=== PATIENT | female | born 1935 | race Caucasian/White ===

== ENCOUNTER 2018-12-16 17:07 | Inpatient (IN) | payer MEDICARE, OTHER ==
[~2018-12-16] VITALS: Ht 154.9 cm; Wt 93.5 kg
[2018-12-16] MEDS ORDERED: SOD CHLORIDE 0.9% 1,000 ML IV STA (17:13)
[2018-12-16] MEDS ORDERED: SOD CHLORIDE 0.9% 0 ML IV ONE (17:56)
--- NOTE | 2018-12-16 18:05 | ERD ---
ER Documentation Chief Complaint Chief Complaint lethargy and weakness x 2 days HPI 83-year-old female with a history of hypertension and diabetes presenting with generalized weakness for the past few days. She states that she gets very short of breath with only minimal exertion. She denies any associated chest pain, fever, chills, cough, recent illness. She was recently admitted to [facility] for 1 week. ROS All systems reviewed and are negative except as per history of present illness. Medications Home Meds Reported Medications Fenofibrate, Micronized* (Fenofibrate*) 160 Mg Tablet, 160 MG PO DAILY, TAB 12/16/18 Pioglitazone Hcl* (Actos*) 45 Mg Tablet, 45 MG PO DAILY, #30 TAB 12/16/18 Atorvastatin* (Atorvastatin*) 40 Mg Tablet, 40 MG PO QHS, #30 TAB 12/16/18 Glimepiride* (Glimepiride*) 2 Mg Tablet, 2 MG PO WITH BREAKFAST DINNE, TAB 12/16/18 Aspirin (Low Dose Aspirin) 81 Mg Tablet.dr, 81 MG PO DAILY, #30 TAB 12/16/18 Levothyroxine Sodium* (Levoxyl*) 150 Mcg Tablet, 150 MCG PO BEFORE BREAKFAST, #30 TAB 12/16/18 Insulin Aspart (Novolog Mix ()) 100 Units/Ml Soln, 0 SC PRN, VIAL PT NOT SURE 12/16/18 Furosemide* (Furosemide*) 40 Mg Tablet, 40 MG PO DAILY, TAB 12/16/18 Amlodipine Besylate* (Norvasc*) 5 Mg Tablet, 5 MG PO DAILY, TAB 12/16/18 Rivaroxaban* (Xarelto*) 20 Mg Tablet, 20 MG PO WITH DINNER, TAB 12/16/18 Celecoxib* (Celebrex*) 200 Mg Capsule, 200 MG PO BID, CAP 12/16/18 Salmeterol Xinaf/Fluticasone* (Advair*) 250-50 Diskus Inhaler, 1 INH INHALATION BID, #1 INHALER 12/16/18 Carvedilol* (Carvedilol*) 6.25 Mg Tablet, 6.25 MG PO BID, #60 TAB 12/16/18 Olmesartan Medoxomil (Benicar) 40 Mg Tablet, 40 MG PO DAILY, #30 TAB 12/16/18 Ezetimibe* (Zetia*) 10 Mg Tablet, 10 MG PO HS, TAB 12/16/18 Ferrous Sulfate* (Ferrous Sulfate*) 325 Mg Tabec, 325 MG PO DAILY, TAB 12/16/18 Magnesium Oxide* (Mag-Oxide*) 400 Mg Tablet, 400 MG PO DAILY, TAB 12/16/18 Lisinopril* (Lisinopril*) 10 Mg Tablet, 10 MG PO DAILY, #30 TAB 12/16/18 Allergies Allergies: Coded Allergies: No Known Allergy (Unverified , 12/16/18) PMhx/Soc History of Surgery: Yes Hx Respiratory Disorders: No Hx Cardiac Disorders: Yes (HTN) Hx Miscellaneous Medical Probl: Yes (DM) Smoking Status: Former smoker FmHx Family History: No diabetes Physical Exam Vitals Vital Signs Date Temp Pulse Resp B/P (MAP) Pulse Ox O2 O2 Flow FiO2 Time Delivery Rate 12/16/18 111 18 94/63 (73) 99 Room Air 18:00 12/16/18 97.3 53 16 96/51 (66) 97 17:14 Physical Exam Const: Appears fatigued, weak, pale. nontoxic. Obese Head: Atraumatic Eyes: Normal Conjunctiva, PERRLA, EOMI ENT: Normal External Ears, Nose and Mouth. Dry mucous membranes Neck: Full range of motion. No meningismus. Resp: Clear to auscultation bilaterally Cardio: Regular rate and rhythm, no murmurs Abd: Soft, non tender, non distended. Normal bowel sounds Skin: Pale. Multiple old bruises on BUEs Back: No midline or flank tenderness Ext: No cyanosis, 2+ pitting edema BLEs Neur: Awake and alert, oriented x 3, no facial asymmetry. Psych: Normal Mood and Affect Result Diagram: 12/16/18 2352 12/16/18 2354 Results 24 hrs Laboratory Tests Test 12/16/18 17:29 12/16/18 17:40 White Blood Count 14.9 10^3/ul Red Blood Count 2.24 10^6/ul Hemoglobin 6.0 g/dl Hematocrit 18.2 % Mean Corpuscular Volume 81.3 fl Mean Corpuscular Hemoglobin 26.8 pg Mean Corpuscular Hemoglobin Concent 33.0 g/dl Red Cell Distribution Width 15.0 % Platelet Count 291 10^3/UL Mean Platelet Volume 10.3 fl Immature Granulocytes % 0.900 % Neutrophils % % Lymphocytes % % Monocytes % % Eosinophils % % Basophils % % Nucleated Red Blood Cells % 0.0 /100WBC Immature Granulocytes # 0.130 10^3/ul Neutrophils # 10^3/ul Lymphocytes # 10^3/ul Monocytes # 10^3/ul Eosinophils # 10^3/ul Basophils # 10^3/ul Nucleated Red Blood Cells # 10^3/ul Pathologist Review (Hematology) YES Sodium Level 117 mmol/L Potassium Level 6.8 mmol/L Chloride Level 88 mmol/L Carbon Dioxide Level 18 mmol/L Anion Gap 11 Blood Urea Nitrogen 53 mg/dl Creatinine 1.28 mg/dl Est Glomerular Filtrat Rate mL/min mL/min Glucose Level 161 mg/dl Calcium Level 8.5 mg/dl Total Bilirubin 0.3 mg/dl Direct Bilirubin 0.00 mg/dl Indirect Bilirubin 0.3 mg/dl Aspartate Amino Transf (AST/SGOT) 28 IU/L Alanine Aminotransferase (ALT/SGPT) 13 IU/L Alkaline Phosphatase 51 IU/L Troponin I 0.523 ng/ml B-Type Natriuretic Peptide 05650 PG/ML Total Protein 6.0 g/dl Albumin 3.3 g/dl Bedside Glucose 200 mg/dL Current Medications Medications Dose Sig/[place] Start Time Status Last (Trade) Ordered Route PRN Stop Time Admin Dose Reason Admin Sodium 1,000 ml @ Q1H STAT 12/16/18 DC 12/16/18 Chloride 1,000 mls/hr IV 17:13 19:09 12/16/18 18:12 Sodium 0 ml @ 0 Q0M ONCE 12/16/18 DC Chloride mls/hr IV 17:56 12/16/18 17:58 Furosemide 40 mg ONCE STAT 12/16/18 DC 12/16/18 (Lasix) IV 18:14 19:09 12/16/18 18:16 Sodium 30 gm ONCE STAT 12/16/18 DC Polystyrene PO 18:14 Sulfonate 12/16/18 18:16 (Kayexelate 15 Gm Kit (Powder+Sorbi sophie)) Albuterol 15 mg ONCE STAT 12/16/18 DC 12/16/18 (Proventil INH 18:14 20:13 0.5% (Neb)) 12/16/18 18:16 Insulin 10 unit ONCE STAT 12/16/18 DC 12/16/18 Human IVP 18:14 19:22 Regular 12/16/18 18:16 (Humulin R) Dextrose 50 ml ONCE ONCE 12/16/18 DC 12/16/18 (D50w IV 18:30 19:09 Syringe) 12/16/18 18:31 Dextrose ONCE PRN 12/16/18 (D50w IV DECREASED 18:30 Syringe) GLUCOSE Sodium 50 ml ONCE STAT 12/16/18 DC 12/16/18 Bicarbonate IV 18:25 19:10 (Na Bicarb 12/16/18 18:26 8.4% Syg) Calcium 1,000 mg ONCE STAT 12/16/18 DC 12/16/18 Chloride IV 18:25 19:09 (Ca Chloride 12/16/18 18:26 10% Syg) Procedures/MDM EMERGENT LABS AND DIAGNOSTIC STUDIES: Lab Results above were reviewed and interpreted by me. CBC: Significant anemia with hemoglobin 6. Leukocytosis, unclear etiology. CMP: Hyponatremia, hyperkalemia, with evidence of acidosis. Elevated BUN and creatinine consistent with renal insufficiency. Troponin elevated, consistent with myocardial ischemia UA: Microscopic hematuria. No evidence of infection 12-lead EKG was interpreted by Jessica Don MD: Sinus bradycardia at 56 bpm with first-degree AV block Normal axis Prolonged AR Abnormal R wave progression No acute ST or T wave changes suggestive of acute ischemia or STEMI. EKG #2: Rate/Rhythm: Sinus rhythm at 65 bpm QRS, ST, T-waves: No changes consistent w/ acute ischemia Impression: No evidence of ischemia or arrhythmia Radiology Results as interpreted by Radiology below were reviewed by Archana Don MD: Chest x-ray: Mildly increased interstitial edema suggesting cardiopulmonary congestion. Initial Nursing notes reviewed. Previous Medical Records requested via the Electronic Health Record. EMERGENCY DEPARTMENT COURSE / MEDICAL DECISION MAKING: Patient is presenting with generalized weakness. Vitals were notable for workup was notable for significant anemia with evidence of renal failure and hyperkalemia. Her hyponatremia is likely secondary to fluid overload. She is not showing any signs of hyponatremia in regards to seizures or vomiting. She was typed and screened and 1 unit of PRBCs were ordered. Her hyperkalemia was treated with insulin, dextrose, albuterol, Kayexalate,Lasix as well as bicarbonate and calcium given her AR prolongation on EKG. Her AR prolongation did improve after treatment on repeat EKG. Patient has remained hemodynamically stable during her ED course. She was noted to have an elevated troponin, but this is most likely secondary to her anemia. I have a lower suspicion for ACS. She is not stable for discharge and will require admission to the ICU for further stabilization. During her ED course she did have an episode of vomiting for which she was treated with Zofran. Critical Care Time: 45 minutes Treatments/Evaluations: Close monitoring and treatment of unstable vital signs, cardiorespiratory, and neurologic status, while maintaining tight balance of fluid, respiratory, and cardiac interventions. This time includes discussing the case with the patient and the patients family. This time does not include all procedures stated elsewhere in this record. This time also includes reviewing old records, labs and radiological studies. This time includes examining and re- examining the patient. Additionally, this time also includes arranging care with admitting and consulting physicians. Accepting Care Team: Current data and ongoing care discussed. Time: Time of admission Primary Provider: Dr. Fabio Harris Diagnosis: Primary Impression: Hyperkalemia Additional Impressions: Hyponatremia Symptomatic anemia Renal failure Renal failure chronicity: unspecified chronicity Qualified Codes: N19 - Unspecified kidney failure Non-STEMI (non-ST elevated myocardial infarction) Condition: Critical BERT DON MD Dec 16, 2018 18:05
[2018-12-16] MEDS ORDERED: MAGN400T27 PO (18:09)
[2018-12-16] MEDS ORDERED: LISI10TA2 PO (18:09)
[2018-12-16] MEDS ORDERED: FER325 PO (18:09)
[2018-12-16] MEDS ORDERED: EZET10TA31 PO (18:09)
[2018-12-16] MEDS ORDERED: OLME40TA13 PO (18:10)
[2018-12-16] MEDS ORDERED: ADV25050 INHALATION (18:10)
[2018-12-16] MEDS ORDERED: CELE200C PO (18:10)
[2018-12-16] MEDS ORDERED: CARV6.2579 PO (18:10)
[2018-12-16] MEDS ORDERED: RIVA20TA5 PO (18:11)
[2018-12-16] MEDS ORDERED: FURO40TA4 PO (18:11)
[2018-12-16] MEDS ORDERED: AMLO5TAB4 PO (18:11)
[2018-12-16] MEDS ORDERED: NOVMIX SC (18:12)
[2018-12-16] MEDS ORDERED: LEVO150T64 PO (18:12)
[2018-12-16] MEDS ORDERED: GLIM2TAB PO (18:13)
[2018-12-16] MEDS ORDERED: ATOR40TA68 PO (18:13)
[2018-12-16] MEDS ORDERED: PIOG45TA9 PO (18:13)
[2018-12-16] MEDS ORDERED: ASPI81TA52 PO (18:13)
[2018-12-16] MEDS ORDERED: ALBUTEROL 0.5% (NEB) 2.5 MG/0.5 ML AMP INH STA (18:14)
[2018-12-16] MEDS ORDERED: SODIUM POLYSTYRENE 15 GM KIT (POWDER + SORBITOL) PO STA (18:14)
[2018-12-16] MEDS ORDERED: FUROSEMIDE 40 MG INJ IV STA (18:14)
[2018-12-16] MEDS ORDERED: FENO160T13 PO (18:14)
[2018-12-16] MEDS ORDERED: INSULIN REGULAR, HUMAN 100 UNIT/1 ML 3ML VIAL IVP STA (18:14)
[2018-12-16] MEDS ORDERED: NA BICARBONATE 8.4% 50 ML SYG IV STA (18:25)
[2018-12-16] MEDS ORDERED: CA CHLORIDE 10% 10 ML SYRINGE IV STA (18:25)
[2018-12-16] MEDS ORDERED: DEXTROSE 50% 50 ML SYRINGE IV ONE (18:30)
[2018-12-16] MEDS ORDERED: DEXTROSE 50% 50 ML SYRINGE IV PRN (18:30)
[2018-12-16] MEDS ORDERED: DOCUSATE SODIUM 100 MG CAP PO PRN (20:00)
[2018-12-16] MEDS ORDERED: IPRATROPIUM (NEB) 0.5 MG/2.5 ML AMP NEB PRN (20:00)
[2018-12-16] MEDS ORDERED: ALBUTEROL 0.083% (NEB) 2.5 MG/3 ML AMP NEB PRN (20:00)
[2018-12-16] MEDS ORDERED: BISACODYL (EC) 5 MG TAB PO PRN (20:00)
[2018-12-16 22:23] VITALS: PULSE 67
[2018-12-16 22:56] VITALS: Ht 154.9 cm; Wt 93.5 kg
[2018-12-16 23:00] VITALS: BP 112/60; PULSE 61; RESP 14
[2018-12-16] MEDS: ONDANSETRON 4 MG INJ IV STA (23:39)
[2018-12-16] MEDS ORDERED: NA POLYST SULFON 15 GM/60 ML BTL PO SCH (23:52)
[2018-12-17] VITALS (34 sets, daily range): BP systolic 86–142; BP diastolic 36–78; PULSE 57–88; RESP 9–19
[2018-12-17] MEDS ORDERED: DEXTROSE 5% 500 ML IV ONE (01:30)
[2018-12-17] MEDS: ALBUMIN HUMAN 25% 100 ML IV SCH ×2 (01:31→03:31)
[2018-12-17] MEDS: ONDANSETRON 4 MG INJ IV STA (01:35)
[2018-12-17] MEDS ORDERED: ALBUMIN HUMAN 25% 100 ML IV ONE (03:30)
[2018-12-17] MEDS ORDERED: NA POLYST SULFON 15 GM/60 ML BTL PO ONE (03:30)
--- NOTE | 2018-12-17 04:26 | HP ---
Date/Time of Note Date/Time of Note DATE: 12/17/18 TIME: 03:29 Assessment/Plan VTE Prophylaxis SCD applied (from Nsg): Yes Pharmacological prophylaxis: NA/contraindicated Pharm contraindication: low risk/ambulating Lines/Catheters IV Catheter Type (from Nrsg): Mid Line Urinary Cath still in place: Yes Reason Cath still needed: other (indicate) (cirtical) Assessment/Plan Hospital Course This is a 83-year-old female being admitted to the ICU floor for: #1 Symptomatic anemia patient presented with hemoglobin of 6.0. Denies any vaginal bleeding or rectal bleeding or any hematuria. Malignancy is on the differential as well. There was noted to be blood on a towel that was placed around her vaginal area. There does not appear to be any gross hematuria in the Rice catheter. At the current time we will continue her blood transfusion. Will check CBC every 6 hours[address] Will obtain a CT scan of the abdomen and pelvis and chest to further evaluate. She also is currently on Xarelto for an unknown reason I will hold this. Will check stool occult blood. Will consult Dr. Buck., #2 Volume overload: Possibly secondary to underlying CHF and/or possible renal failure versus possible malignancy. Patient does have signs of pulmonary conges tion on chest x-ray as well as bilateral lower extremity edema. Patient does appear to be intravascularly depleted. She did receive a dose of Lasix in the ED, I will give her albumin at the current time. To assist in diuresis. Will obtain a echocardiogram to assess her heart function. BNP is elevated approximately 11,000. CT of the abdomen pelvis and chest have been ordered. #3 severe hyponatremia: Likely secondary to diuretic use, dehydration. Initial sodium of 117 goal is to bring it at least above 120 at the current time. She did receive fluids in the ED. By her volume overload she appears to be intravascularly depleted. At the current time we will give the patient albumin treatments. She did receive Lasix in the ED I will hold off on this at the current time and defer further management to nephrology to help with fluids. Serial BMPs. With a goal of not raising sodium more than 6-8meqs in the first 24 hours. #4 acute kidney injury: I do not have a previous baseline creatinine. Secondary to hemodynamics, ARCHIE inhibitor use, Lasix he does have signs of volume overload she appears to be intravascularly depleted. We will hold ARCHIE at the current time. Will monitor renal function. We will give the patient albumin. #5 elevated troponins: Likely secondary to demand. Will trend troponins. Will check an echocardiogram. Will consult cardiology. #6 diabetes mellitus: We will check hemoglobin A 1C, insulin sliding scale #7 hypertension: We will hold ARCHIE inhibitor at the current time given HARINI. Resume further meds as indicated #8 hypothyroidism: We will check TSH, continue levothyroxine #9 anticoagulation: Patient currently on Xarelto however she does not know why she is on it. Will hold this at the current time given her anemia. #10 DVT GI prophylaxis: SCDs, Protonix code status: full code Further treatment strategy will be implemented as per the clinical course Greater than 45 minutes of critical care time was spent in the care management this patient I have placed a nursing communication first to obtain records from [facility] in regards to patient's recent admission there. Result Diagram: 12/16/18 2354 12/16/18 2354 Results 24hrs Laboratory Tests Test 12/16/18 17:29 12/16/18 17:40 12/16/18 18:57 12/16/18 19:06 White Blood Count 14.9 H Red Blood Count 2.24 L Hemoglobin 6.0 *L Hematocrit 18.2 L Mean Corpuscular 81.3 L Volume Mean Corpuscular 26.8 L Hemoglobin Mean Corpuscular 33.0 Hemoglobin Concen t Red Cell 15.0 H Distribution Width Platelet Count 291 Mean Platelet 10.3 Volume Immature 0.900 H Granulocytes % Neutrophils % Lymphocytes % Monocytes % Eosinophils % Basophils % Nucleated Red 0.0 Blood Cells % Immature 0.130 H Granulocytes # Neutrophils # Lymphocytes # Monocytes # Eosinophils # Basophils # Nucleated Red Blood Cells # Pathologist YES Review (Hematolog y) Sodium Level 117 *L Potassium Level 6.8 *H Chloride Level 88 L Carbon Dioxide 18 L Level Anion Gap 11 Blood Urea 53 H Nitrogen Creatinine 1.28 H Est Glomerular Filtrat Rate mL/min Glucose Level 161 Calcium Level 8.5 Total Bilirubin 0.3 Direct Bilirubin 0.00 Indirect 0.3 Bilirubin Aspartate Amino 28 Transf (AST/SGOT) Alanine 13 Aminotransferase (ALT/SGPT) Alkaline 51 Phosphatase Troponin I 0.523 *H B-Type 37485 H Natriuretic Peptide Total Protein 6.0 L Albumin 3.3 Bedside Glucose 200 174 Urine Color YELLOW Urine Clarity SLIGHTLY CLOUDY A Urine pH 5.0 Urine Specific 1.011 [place] Urine Ketones NEGATIVE Urine Nitrite NEGATIVE Urine Bilirubin NEGATIVE Urine NEGATIVE Urobilinogen Urine Leukocyte NEGATIVE Esterase Urine Microscopic 3 RBC Urine Microscopic 1 WBC Urine Squamous FEW Epithelial Cells Urine Bacteria FEW A Urine Hemoglobin 2+ H Urine Glucose NEGATIVE Urine Total NEGATIVE Protein Test 12/16/18 19:42 12/16/18 23:54 Bedside Glucose 295 H White Blood Count 16.4 H Red Blood Count 2.88 #L Hemoglobin 7.9 #L Hematocrit 23.7 #L Mean Corpuscular 82.3 Volume Mean Corpuscular 27.4 L Hemoglobin Mean Corpuscular 33.3 Hemoglobin Concen t Red Cell 14.7 H Distribution Width Platelet Count 282 Mean Platelet 10.1 Volume Immature 1.000 H Granulocytes % Neutrophils % 72.4 Lymphocytes % 16.0 Monocytes % 9.7 Eosinophils % 0.7 Basophils % 0.2 Nucleated Red 0.0 Blood Cells % Immature 0.160 H Granulocytes # Neutrophils # 11.8 H Lymphocytes # 2.6 Monocytes # 1.6 H Eosinophils # 0.1 Basophils # 0.0 Nucleated Red 0.0 Blood Cells # Sodium Level 123 L Potassium Level 6.0 H Chloride Level 88 L Carbon Dioxide 20 L Level Anion Gap 15 H Blood Urea 50 H Nitrogen Creatinine 1.22 H Est Glomerular Filtrat Rate mL/min Glucose Level 161 Hemoglobin A1c 6.6 H Lactic Acid Level 1.3 Calcium Level 9.4 Total Bilirubin 0.8 Direct Bilirubin 0.00 Indirect 0.8 Bilirubin Aspartate Amino 32 Transf (AST/SGOT) Alanine 21 Aminotransferase (ALT/SGPT) Alkaline 55 Phosphatase Creatine Kinase 35 Creatine Kinase 2.7 Index Creatinine Kinase 0.94 MB (Mass) Troponin I 0.510 *H Total Protein 6.0 L Albumin 3.4 Globulin 2.60 Albumin/Globulin 1.30 Ratio HPI/ROS Admit Date/Time Admit Date/Time Dec 16, 2018 at 18:55 Hx of Present Illness cc: weakness for the past few days. This is 83-year-old female with a history of hypertension and diabetes presenting with generalized weakness for the past few days. She states that she gets very short of breath with only minimal exertion. She reports that recently her Lasix dose was increased to 40-80 mg daily. She states that she does feel very thirsty now. She lives at home and does have a caregiver. She also does have a grandson that visit her. Vaginal bleeding or rectal bleeding. She denie s any associated chest pain, fever, chills, cough, recent illness. She was recently admitted to [facility] for 1 week. allergies: nkda meds: see derrick SAXENA Const: As per HPI Eyes : No pain discharge or redness or change in visual acuity ENT: No pain, sore throat, congestion, congestion, dysphagia or discharge Respiratory: As per HPI Cardiovascular: No chest pain, palpitation, PND, or edema GI : no change in appetite, abdominal pain, nausea, vomiting, diarrhea, constipation, or change in the color his stool Genitourinary: No dysuria, hematuria, flank pain , discharge or CVA tenderness Musculoskeletal: As per HPI Skin: No rash, bruising or hives Neuro: No headache, dizziness, syncope, seizure, focal weakness Endocrine: No polyuria, polydipsia, temperature intolerance Psych: No hallucination, depression, anxiety or suicidal ideation PMH/Family/Social Past Medical History Diabetes mellitus, hypertension, hyperlipidemia, hypothyroidism Medications Current Medications Dextrose (D50w Syringe) ONCE PRN IV DECREASED GLUCOSE; Start 12/16/18 at 18:30 Albuterol (Proventil 0.083% (Neb)) 2.5 mg Q2H RESP THERAPY PRN NEB SHORTNESS OF BREATH; Start 12/16/18 at 20:00 Ipratropium [place] (Atrovent 0.02% (Neb)) 0.5 mg Q2H RESP THERAPY PRN NEB JANELLE RTNESS OF BREATH; Start 12/16/18 at 20:00 Acetaminophen (Tylenol Liquid) 650 mg Q6H PRN PO PAIN LEVEL 1-3 OR FEVER; Start 12/16/18 at 20:00 Docusate Sodium (Colace) 100 mg Q12H PRN PO CONSTIPATION; Start 12/16/18 at 20:00 Bisacodyl (Dulcolax) 5 mg DAILY PRN PO CONSTIPATION; Start 12/16/18 at 20:00 Pantoprazole (Protonix Iv) 40 mg DAILY@06 IV ; Start 12/17/18 at 06:00 Coded Allergies: No Known Allergy (Unverified , 12/16/18) Past Surgical History Thyroidectomy, hysterectomy, appendectomy Family History Significant Family History: no pertinent family hx Social History Alcohol Use: none Smoking Status: Never smoker Drug Use: none Exam/Review of Systems Vital Signs Vitals Vital Signs Date Temp Pulse Resp B/P (MAP) Pulse Ox O2 O2 Flow FiO2 Time Delivery Rate 12/17/18 98.1 64 15 121/62 100 Room Air 01:00 (81) 12/16/18 21 20:13 Intake and Output 12/16/18 12/16/18 12/17/18 1515:00 23:00 07:00 OutputOutput Total 100 ml 400 ml BalanceBalance -100 ml -400 ml Exam Exam General: this a pleasant female currently lying in bed in no acute distress HEENT: Atraumatic, normocephalic. The pupils are equal, round and reactive. Extraocular motor are intact Neck: Supple with full range of motion. No rigidity or meningismus Chest: Nontender Lungs: Coarse breath sounds bilaterally, rales, nonlabored breathing Heart: Normal S1-S2, Regular rhythm and rate. Abdomen: Soft , nontender, nondistended , bowel sounds are present. No guarding no rebound tenderness , No masses or organomegaly. No costovertebral temporal angle mass Genitourinary: Rice catheter in place her urine appears clear. There are was a towel that was placed around the vaginal area which was noted to have blood. This towel was switched when she arrived to the ICU and again there was blood noted. Extremities: 2+ pitting edema of the bilateral lower extremities up to the knees Neurologic: Normal mental status, speech normal, cranial nerves II through XII are intact, motor and sensory are intact, Additional Comments PROCEDURE: XR Chest. CLINICAL INDICATION: Shortness of breath, syncope TECHNIQUE: Single frontal radiograph of the chest. COMPARISON: CR CHEST 12/04/2018; CR CHEST 11/29/2018 FINDINGS: Mildly increased interstitial edema suggesting cardiopulmonary congestion. No pleural effusion. No pneumothorax. Cardiomegaly unchanged. Vascular calcifications of the aorta are present compatible with atherosclerosis. IMPRESSION: Mildly increased interstitial edema suggesting cardiopulmonary congestion. RPTAT: AADD .Demond Flores MD, MD Date Time Electronically viewed and signed by .Demond Flores MD, MD on 12/16/2018 18:38 .B/ CC: BERT SANCHEZ MD [id number] EKG: Sinus bradycardia at 56 bpm with first-degree AV block Normal axis Prolonged MT Abnormal R wave progression No acute ST or T wave changes suggestive of acute ischemia or STEMI. BETZY HERNANDEZ Dec 17, 2018 03:39
[2018-12-17] MEDS ORDERED: PANTOPRAZOLE 40 MG INJ IV SCH (06:00)
[2018-12-17] MEDS: LEVOTHYROXINE 150 MCG TAB PO SCH (06:45)
[2018-12-17] MEDS: ACETAMINOPHEN 650MG/20.3ML CUP PO PRN (06:45)
[2018-12-17] MEDS: FLUTICASONE/VILANTEROL 100-25 INH SCH (08:44)
--- NOTE | 2018-12-17 08:45 | CONS ---
DATE OF ADMISSION: 12/16/2018 DATE OF CONSULTATION: 12/17/2018 TYPE OF CONSULTATION: Nephrology. REASON FOR CONSULTATION: Hypernatremia. PHYSICIAN REQUESTING CONSULT: Dr. Hernandez. HISTORY OF PRESENT ILLNESS: This is an 83-year-old female with a past medical history of hypertensio n, history of diabetes, questionable history of heart failure, questionable history of chronic kidney disease, who presents to [facility] with weakness. The patient states that over t he past few days she has been feeling shortness of breath noted increased lower extremity swelling. The patient also reports having vaginal rectal bleeding. The patient states she has been taking diur etics at home and has been increasing the dose due to worsening swelling, but as a result of her symp toms, she came to the [facility] for evaluation. Upon arrival, the patient was not ed to be hypernatremic with sodium level of 117. The patient in the emergency room also had a chest x-ray, which showed findings of interstitial edema suggesting pulmonary congestion. The patient in [facility] emergency room was given IV albumin. She was hypotensive and admitted to intensive care unit for further evaluation. In terms of patient's renal history, the patient denies having any prior history of hypernatremia. T he patient denies any prior history of kidney disease. She denies any hemoptysis. No frothy urine, no rashes. PAST MEDICAL HISTORY: History of hypertension, history of hypothyroidism, history of diabetes, quest ionable history of chronic kidney disease, questionable history of congestive heart failure. PAST SURGICAL HISTORY: History of thyroidectomy, hysterectomy, and appendectomy. ALLERGIES: NONE. MEDICATIONS: Reviewed. SOCIAL HISTORY: She does not drink, smoke or do drugs. REVIEW OF SYSTEMS: A 14-point review of systems was conducted. Pertinent positives stated in HPI, o therwise negative. PHYSICAL EXAMINATION: VITAL SIGNS: Blood pressure is 114/71, respirations 18, pulse 74, temperature 97.8. HEENT: Head is normocephalic. NECK: Supple. Positive JVD. HEART: Regular rate. LUNGS: Show diminished breath sounds at the base. ABDOMEN: Soft, nontender to palpation. EXTREMITIES: Negative for clubbing, cyanosis. Positive edema. DERMATOLOGIC: No rashes. MUSCULOSKELETAL: No joint effusion. NEUROLOGIC: No focal deficits. LABORATORY DATA: Shows sodium 124, potassium 5.2, chloride 91, BUN 46, creatinine 1.25. Hemoglobin A1c 6.6. White count 14.7, hemoglobin 7.0, platelet count 307. The patient's urinalysis was reviewe d, no pyuria, no hematuria, no proteinuria. IMAGING STUDIES: Reviewed. ASSESSMENT AND PLAN: This is an 83-year-old female who presents with: 1. Nonoliguric acute kidney injury with unknown baseline creatinine, possible chronic kidney disease . Etiology of acute kidney injury is likely hemodynamics, possible cardiorenal syndrome, NSAID effec t, diuretics. The patient's urinalysis is otherwise bland, no active sediment, therefore lower suspi cion for acute glomerular nephritis and vasculitis or tubular injury. Recommendation at this point i s to check a renal ultrasound to evaluate renal parenchyma. We would continue current medical manage ment. Continue supportive care, renally dose all medicines. We would reintroduce diuretic therapy i f the patient is hemodynamically stable. The patient is clinically volume overloaded. We will monit or closely. 2. Hypernatremia. Etiology is multifactorial secondary to acute kidney injury causing decreased marci e water urinary excretion in conjunction with polydipsia. The patient's sodium levels have slowly im proving. We will monitor closely to ensure correction of no more than 8 to 10 mEq in a 24-hour perio d. Additionally, further evaluation will be performed. TSH, AM cortisol level, urine sodium, urine osmolarity, uric acid levels will be obtained. We will continue to monitor serum sodium levels close ly. 3. Hyperkalemia secondary to acute kidney injury, ARCHIE inhibitor effect. The patient's potassium lev els are improving. The patient is status post Kayexalate. Continue to monitor. 4. Acute congestive heart failure exacerbation. The patient is clinically volume overloaded. Recom mendation is to check a 2D echo, check serial troponins to rule out acute coronary syndrome as a prec ipitating cause. Continue diuretic therapy, consider getting a cardiology evaluation. 5. Anemia etiology is unclear, possibly due to vaginal bleed. The patient's workup is ongoing. Fol low up iron panel, ferritin level and monitor hemoglobin and hematocrit levels closely. 6. Mineral bone disorder, monitor calcium and phosphorus levels. 7. Elevated troponin. Etiology may be secondary to demand ischemia, non-ST elevation myocardial inf arction type 2. Continue to monitor serial troponins. Check a 2D echo. 8. Diabetes. Continue current insulin regimen. 9. Hypertension. We will hold blood pressure regimen and monitor closely. 10. Hypothyroidism. Continue Synthroid. 11. Gastrointestinal and deep vein thrombosis prophylaxis. Thank you, Dr. Hernandez, for this interesting consult. It will be a pleasure to follow the patient wi th you throughout the hospital course. Dictated By: JOVAN GRAVES DO NR/NTS Conf#: [id number] DID#: [id number] CC: BETZY HERNANDEZ MD;*EndCC*
[2018-12-17] MEDS ORDERED: AMLODIPINE 5 MG TAB PO SCH (09:00)
[2018-12-17] MEDS: HYDROCODONE/APAP (5/325) TAB PO PRN (10:21)
--- NOTE | 2018-12-17 13:21 | RADRPT ---
Echocardiogram Report Patient Name: Michelle BUSTILLOS ID: [id number] : 1935 (83y 2m)Study Date: 12/17/2018 8:33:21 AM Gender: FAccession #: [id number] Tech: [place] Location: Ref.Physician: BETZY HERNANDEZ Height(Cm): BSA: Weight(Kg): Quality: AdequateAccount #: Procedures: Echocardiographic Report: Transthoracic echocardiogram with complete 2D, M-Mode, and doppler examination. Indications: Elevated trop, CHF. Measurements: 2D/M Mode Doppler Measurement Value Normal Range Measurement Value Normal Range LVIDd 2D 3.2 [ 3.8 - 5.2 ] cm KATHY VTI 0.7 [ 2.0 - 4.0 ] cm2 LVIDs 2D 1.9 [ 2.2 - 3.5 ] cm AV Mean Elieesr 2.3 [ 70.0 - 90.0 ] cm/sec LVPWd 2D 1.5 [ 0.6 - 0.9 ] cm AV Mean PG 25.0 [ 2.0 - 4.0 ] mmHg IVSd 2D 1.5 [ 0.6 - 0.9 ] cm AV VTI 77.1 cm AoR Diam 2D 2.2 [ 2.3 - 3.1 ] cm AI Peak PG 53.0 mmHg EDV 2D 41.0 [ 46.0 - 106.0 ] ml AI Peak Elieser 3.7 cm/sec ESV 2D 10.6 [ 14.0 - 42.0 ] ml AI PHT 281.0 msec EF 2D 74.1 [ 54.0 - 74.0 ] percent LVOT Mean Elieser 0.6 [ 60.0 - 80.0 ] cm/sec LA Dimen 2D 4.5 [ 2.7 - 3.8 ] cm LVOT Mean PG 2.0 [ 1.0 - 3.0 ] mmHg LVOT Diam 1.8 [ 2.1 - 2.5 ] cm LVOT Peak Elieser 1.0 [ 70.0 - 110.0 ] cm/se c LVOT Peak PG 4.0 [ 2.0 - 6.0 ] mmHg LVOT VTI 20.7 [ 20.0 - 30.0 ] cm MV E Peak Elieser 1.6 [ 60.0 - 130.0 ] cm/se c MV A Peak Elieser 1.4 [ 100.0 - 120.0 ] cm/s ec MV E/A 1.1 [ 0.8 - 1.5 ] ratio MV PHT 70.0 [ 20.0 - 100.0 ] msec MV Peak Elieser 2.1 [ 60.0 - 130.0 ] cm/se c MV Peak PG 17.0 [ 1.0 - 10.0 ] mmHg MV Mean Elieser 1.1 cm/sec MV Mean PG 6.0 mmHg MV Decel Time 218 [ 104 - 258 ] msec MV Decel [place] 8 MV E/A 1.1 [ 0.8 - 1.5 ] ratio MV PHT Peak Elieser 1.9 cm/sec MV VTI 50.3 cm MVA PHT 3.1 [ 2.0 - 4.0 ] cm2 MVA VTI 1.0 cm TR Peak Elieser 4.0 [ 100.0 - 280.0 ] cm/s ec TR Peak PG 64.0 mmHg RVSP 74.0 [ 10.0 - 36.0 ] mmHg RA Pressure 10.0 mmHg Findings: Left Ventricle: Normal left ventricular cavity size. Moderate concentric left ventricular hypertrophy. Severe left ventricular systolic dysfunction. Ejection fraction is visually estimated at 40 %. Abnormal Diastolic Function. These segments of the LV are hypokinetic apical anterior segment, apical lateral segment, inferior apex segment and apical septum. Right Ventricle: Normal right ventricular size. Normal right ventricular systolic function. Left Atrium: There is moderate enlargement of left atrium. Right Atrium: The right atrium is normal in size. Mitral Valve: Normal appearance and function of the mitral valve with trace physiologic regurgitation. Mild mitral leaflet calcification. Moderate mitral annular calcification. Mild mitral valve regurgitation. The regurgitation jet is eccentrically directed which may underestimate the severity of mitral regurgitation. Mild mitral stenosis. Mitral valve Max Velocity 2.08 m/sec. MaxPG 17.00 mmHg. MeanPG 6.00 mmHg. Aortic Valve: Normal appearance of the aortic valve. No significant aortic stenosis or insufficiency. Moderate to severe aortic stenosis. Aortic valve Max velocity 3.27 m/sec. Max PG 43.00 mmHg. Mean PG 25.00 mmHg. Aortic valve area 0.68 cm2. Moderate aortic valve regurgitation. Tricuspid Valve: Normal appearance of the tricuspid valve. Estimated peak PA systolic pressure 74 mmHg. There is moderate tricuspid regurgitation. Pulmonic Valve: Pulmonic valve not well visualized. Pericardium: Normal pericardium with no significant pericardial effusion. Aorta: Normal aortic root. IVC: Normal size and no respiratory collapse consistent with elevated right atrial pressure. Conclusions: Normal left ventricular cavity size. Moderate concentric left ventricular hypertrophy. Severe left ventricular systolic dysfunction. Ejection fraction is visually estimated at 40 %. Abnormal Diastolic Function. These segments of the LV are hypokinetic apical anterior segment, apical lateral segment, inferior apex segment and apical septum. There is moderate enlargement of left atrium. Normal appearance and function of the mitral valve with trace physiologic regurgitation. Mild mitral leaflet calcification. Moderate mitral annular calcification. Mild mitral valve regurgitation. The regurgitation jet is eccentrically directed which may underestimate the severity of mitral regurgitation. Mild mitral stenosis. Mitral valve Max Velocity 2.08 m/sec. MaxPG 17.00 mmHg. MeanPG 6.00 mmHg. Normal appearance of the aortic valve. No significant aortic stenosis or insufficiency. Moderate to severe aortic stenosis. Aortic valve Max velocity 3.27 m/sec. Max PG 43.00 mmHg. Mean PG 25.00 mmHg. Aortic valve area 0.68 cm2. Moderate aortic valve regurgitation. Normal appearance of the tricuspid valve. Estimated peak PA systolic pressure 74 mmHg. There is moderate tricuspid regurgitation. Electronically Signed By: Octavio Slater 2018-12-17 13:20:13 PDT
--- NOTE | 2018-12-17 14:02 | CONS ---
Assessment/Plan Assessment/Plan Hospital Course (Demo Recall) Abnormal troponin probably secondary to below Aortic stenosis Cardiomyopathy Congestive heart failure Severe anemia possibly GI bleed History of hypertension currently mostly hypotensive though Obesity and possible obstructive sleep apnea Pulmonary hypertension Hyponatremia Cardiovascular preop evaluation for endoscopy Recommendations: Patient off of any aspirin due to concern about bleeding and GI bleed in severe anemia Fluid management as per renal. We will follow-up cardiac enzymes including CK and CK-MB Transfusion as needed I will stop the amlodipine and start the patient on lisinopril instead No further cardiac workup would be indicated prior to the proposed endoscopy. Patient would be at moderate risk of cardiovascular event given her multiple comorbidities however. Thank you for his referral. I will continue to follow along with you LIDIA MOLINA MD [facility] Consultation Date/Type/Reason Admit Date/Time Dec 16, 2018 at 18:55 Date of Consultation: Dec 17, 2018 Type of Consult Cardiology Reason for Consultation cv Requesting Provider: BETZY HERNANDEZ Date/Time of Note DATE: 12/17/18 TIME: 13:53 Hx of Present Illness Interventional cardiology consultation note Chief complaint: Weakness shortness of breath Reason for consult: Abnormal troponin History of present illness: Thank you for this referral. History with a number of the patient was a poor historian from discussion with the staff and physicians This is an 83-year-old female with a past medical history of hypertension, history of diabetes, questionable history of heart failure, questionable history of chronic kidney disease, who presents to with weakness. The patient states that over the past few days she has been feeling shortness of breath noted increased lower extremity swelling. The patient also reports having vaginal rectal bleeding. The patient states she has been taking diuretics at home and has been increasing the dose due to worsening swelling, but as a result of her symptoms, she came to the for evaluation. Upon arrival, the patient was noted to be hypernatremic , severe anemia and troponin was mildly elevated. She denies any left-sided chest pain or pressure to me. She does have shortness of breath however. She does state that she was admitted to outside facility has probably [facility] 1-2 weeks ago. PAST MEDICAL HISTORY: History of hypertension, history of hypothyroidism, history of diabetes, questionable history of chronic kidney disease, questionable history of congestive heart failure. Heart disease far as she consent PAST SURGICAL HISTORY: History of thyroidectomy, hysterectomy, and appendectomy. ALLERGIES: NONE. Family history: No reported early coronary artery disease Social history: Does not smoke or drink Review of system: Patient denies all others except for above-mentioned Past Medical History Home Meds Reported Medications Fenofibrate, Micronized* (Fenofibrate*) 160 Mg Tablet, 160 MG PO DAILY, TAB 12/16/18 Pioglitazone Hcl* (Actos*) 45 Mg Tablet, 45 MG PO DAILY, #30 TAB 12/16/18 Atorvastatin* (Atorvastatin*) 40 Mg Tablet, 40 MG PO QHS, #30 TAB 12/16/18 Glimepiride* (Glimepiride*) 2 Mg Tablet, 2 MG PO WITH BREAKFAST DINNE, TAB 12/16/18 Aspirin (Low Dose Aspirin) 81 Mg Tablet.dr, 81 MG PO DAILY, #30 TAB 12/16/18 Levothyroxine Sodium* (Levoxyl*) 150 Mcg Tablet, 150 MCG PO BEFORE BREAKFAST, #30 TAB 12/16/18 Insulin Aspart (Novolog Mix ()) 100 Units/Ml Soln, 0 SC PRN, VIAL PT NOT SURE 12/16/18 Furosemide* (Furosemide*) 40 Mg Tablet, 40 MG PO DAILY, TAB 12/16/18 Amlodipine Besylate* (Norvasc*) 5 Mg Tablet, 5 MG PO DAILY, TAB 12/16/18 Rivaroxaban* (Xarelto*) 20 Mg Tablet, 20 MG PO WITH DINNER, TAB 12/16/18 Celecoxib* (Celebrex*) 200 Mg Capsule, 200 MG PO BID, CAP 12/16/18 Salmeterol Xinaf/Fluticasone* (Advair*) 250-50 Diskus Inhaler, 1 INH INHALATION BID, #1 INHALER 12/16/18 Carvedilol* (Carvedilol*) 6.25 Mg Tablet, 6.25 MG PO BID, #60 TAB 12/16/18 Olmesartan Medoxomil (Benicar) 40 Mg Tablet, 40 MG PO DAILY, #30 TAB 12/16/18 Ezetimibe* (Zetia*) 10 Mg Tablet, 10 MG PO HS, TAB 12/16/18 Ferrous Sulfate* (Ferrous Sulfate*) 325 Mg Tabec, 325 MG PO DAILY, TAB 12/16/18 Magnesium Oxide* (Mag-Oxide*) 400 Mg Tablet, 400 MG PO DAILY, TAB 12/16/18 Lisinopril* (Lisinopril*) 10 Mg Tablet, 10 MG PO DAILY, #30 TAB 12/16/18 Medications Current Medications Dextrose (D50w Syringe) ONCE PRN IV DECREASED GLUCOSE; Start 12/16/18 at 18:30 Albuterol (Proventil 0.083% (Neb)) 2.5 mg Q2H RESP THERAPY PRN NEB SHORTNESS OF BREATH; Start 12/16/18 at 20:00 Ipratropium Darragh (Atrovent 0.02% (Neb)) 0.5 mg Q2H RESP THERAPY PRN NEB SHORTNESS OF BREATH; Start 12/16/18 at 20:00 Acetaminophen (Tylenol Liquid) 650 mg Q6H PRN PO PAIN LEVEL 1-3 OR FEVER Last administered on 12/17/18at 06:45; Admin Dose 650 MG; Start 12/16/18 at 20:00 Docusate Sodium (Colace) 100 mg Q12H PRN PO CONSTIPATION; Start 12/16/18 at 20:00 Bisacodyl (Dulcolax) 5 mg DAILY PRN PO CONSTIPATION; Start 12/16/18 at 20:00 Amlodipine Besylate (Norvasc) 5 mg DAILY PO ; Start 12/17/18 at 09:00 Atorvastatin Calcium (Lipitor) 40 mg QHS PO ; Start 12/17/18 at 21:00 Carvedilol (Coreg) 6.25 mg BID PO Last administered on 12/17/18at 08:49; Admin Dose 6.25 MG; Start 12/17/18 at 09:00 Levothyroxine Sodium (Synthroid) 150 mcg BEFORE BREAKFAST PO Last administered on 12/17/18at 06:45; Admin Dose 150 MCG; Start 12/17/18 at 07:00 Fluticasone/ Vilanterol (Breo Ellipta 100-25 Mcg Inh) 1 inh DAILY INH Last administered on 12/17/18at 08:44; Admin Dose 1 INH; Start 12/17/18 at 09:00 Pantoprazole (Protonix Tab) 40 mg DAILY@06 PO ; Start 12/18/18 at 06:00 Acetaminophen/ Hydrocodone Bitart (Havana (5/325)) 1 tab Q4H PRN PO MODERATE PAIN LEVEL 4-6 Last administered on 12/17/18at 10:21; Admin Dose 1 TAB; Start 12/17/18 at 10:30 Allergies: Coded Allergies: No Known Allergy (Unverified , 12/16/18) Social History Alcohol Use: none Smoking Status: Never smoker Drug Use: none Exam/Review of Systems Vital Signs Vitals Vital Signs Date Temp Pulse Resp B/P (MAP) Pulse Ox O2 O2 Flow FiO2 Time Delivery Rate 12/17/18 64 12:00 12/17/18 10 87/51 (63) 11:30 12/17/18 Room Air 11:00 12/17/18 99 09:00 12/17/18 97.8 08:04 12/16/18 21 20:13 Intake and Output 12/16/18 12/16/18 12/17/18 1515:00 23:00 07:00 IntakeIntake Total 300 ml OutputOutput Total 100 ml 1675 ml BalanceBalance -100 ml -1375 ml Exam Exam General: Obese female in no acute distress HEENT: NC/AT. pupils are equal. round. NECK: no stridor. CV: RRR. systolic murmur; no gallop or rubs. PULM: no wheezing minimal rhonchi. GI: SOFT, NT, ND, no rebound or guarding Extremity: + B/L LE edema. no clubbing. neuro: awake and alert, OX3. Psych: calm and pleasant rectal: deferred Sinus normal sinus rhythm. Poor R wave progression constant anterior infarct age undetermined Echocardiogram was personally reviewed which shows: Normal left ventricular cavity size. Moderate concentric left ventricular hypertrophy. Severe left ventricular systolic dysfunction. Ejection fraction is visually estimated at 40 %. Abnormal Diastolic Function. These segments of the LV are hypokinetic apical anterior segment, apical lateral segment, inferior apex segment and apical septum. There is moderate enlargement of left atrium. Normal appearance and function of the mitral valve with trace physiologic regurgitation. Mild mitral leaflet calcification. Moderate mitral annular calcification. Mild mitral valve regurgitation. The regurgitation jet is eccentrically directed which may underestimate the severity of mitral regurgitation. Mild mitral stenosis. Mitral valve Max Veloc ity 2.08 m/sec. MaxPG 17.00 mmHg. MeanPG 6.00 mmHg. . Moderate to severe aortic stenosis. Aortic valve Max velocity 3.27 m/sec. Max PG 43.00 mmHg. Mean PG 25.00 mmHg. Aortic valve area 0.68 cm2. Moderate aortic valve regurgitation. Normal appearance of the tricuspid valve. Estimated peak PA systolic pressure 74 mmHg. There is moderate tricuspid regurgitation. Labs Result Diagram: 12/17/185 12/17/18 0415 Results 24hrs Laboratory Tests Test 12/16/18 17:29 12/16/18 17:40 12/16/18 18:57 12/16/18 19:06 White Blood Count 14.9 H Red Blood Count 2.24 L Hemoglobin 6.0 *L Hematocrit 18.2 L Mean Corpuscular 81.3 L Volume Mean Corpuscular 26.8 L Hemoglobin Mean Corpuscular 33.0 Hemoglobin Concen t Red Cell 15.0 H Distribution Width Platelet Count 291 Mean Platelet 10.3 Volume Immature 0.900 H Granulocytes % Neutrophils % Lymphocytes % Monocytes % Eosinophils % Basophils % Nucleated Red 0.0 Blood Cells % Immature 0.130 H Granulocytes # Neutrophils # Lymphocytes # Monocytes # Eosinophils # Basophils # Nucleated Red Blood Cells # Pathologist YES Review (Hematolog y) Sodium Level 117 *L Potassium Level 6.8 *H Chloride Level 88 L Carbon Dioxide 18 L Level Anion Gap 11 Blood Urea 53 H Nitrogen Creatinine 1.28 H Est Glomerular Filtrat Rate mL/min Glucose Level 161 Calcium Level 8.5 Total Bilirubin 0.3 Direct Bilirubin 0.00 Indirect 0.3 Bilirubin Aspartate Amino 28 Transf (AST/SGOT) Alanine 13 Aminotransferase (ALT/SGPT) Alkaline 51 Phosphatase Troponin I 0.523 *H B-Type 18886 H Natriuretic Peptide Total Protein 6.0 L Albumin 3.3 Bedside Glucose 200 174 Urine Color YELLOW Urine Clarity SLIGHTLY CLOUDY A Urine pH 5.0 Urine Specific 1.011 [place] Urine Ketones NEGATIVE Urine Nitrite NEGATIVE Urine Bilirubin NEGATIVE Urine NEGATIVE Urobilinogen Urine Leukocyte NEGATIVE Esterase Urine Microscopic 3 RBC Urine Microscopic 1 WBC Urine Squamous FEW Epithelial Cells Urine Bacteria FEW A Urine Hemoglobin 2+ H Urine Glucose NEGATIVE Urine Total NEGATIVE Protein Test 12/16/18 19:42 12/16/18 23:54 12/17/18 04:00 12/17/18 04:15 Bedside Glucose 295 H White Blood Count 16.4 H 14.7 H Red Blood Count 2.88 #L 2.52 L Hemoglobin 7.9 #L 7.0 L Hematocrit 23.7 #L 20.8 L Mean Corpuscular 82.3 82.5 Volume Mean Corpuscular 27.4 L 27.8 L Hemoglobin Mean Corpuscular 33.3 33.7 Hemoglobin Concen t Red Cell 14.7 H 14.5 Distribution Width Platelet Count 282 307 Mean Platelet 10.1 10.2 Volume Immature 1.000 H 1.000 H Granulocytes % Neutrophils % 72.4 67.7 Lymphocytes % 16.0 20.5 Monocytes % 9.7 10.0 Eosinophils % 0.7 0.6 Basophils % 0.2 0.2 Nucleated Red 0.0 0.0 Blood Cells % Immature 0.160 H 0.150 H Granulocytes # Neutrophils # 11.8 H 10.0 H Lymphocytes # 2.6 3.0 H Monocytes # 1.6 H 1.5 H Eosinophils # 0.1 0.1 Basophils # 0.0 0.0 Nucleated Red 0.0 0.0 Blood Cells # Sodium Level 123 L 124 L Potassium Level 6.0 H 5.2 H Chloride Level 88 L 91 L Carbon Dioxide 20 L 22 Level Anion Gap 15 H 11 Blood Urea 50 H 46 H Nitrogen Creatinine 1.22 H 1.25 H Est Glomerular Filtrat Rate mL/min Glucose Level 161 155 Hemoglobin A1c 6.6 H Lactic Acid Level 1.3 Calcium Level 9.4 9.3 Total Bilirubin 0.8 Direct Bilirubin 0.00 Indirect 0.8 Bilirubin Aspartate Amino 32 Transf (AST/SGOT) Alanine 21 Aminotransferase (ALT/SGPT) Alkaline 55 Phosphatase Creatine Kinase 35 30 Creatine Kinase 2.7 2.9 Index Creatinine Kinase 0.94 0.88 MB (Mass) Troponin I 0.510 *H 0.451 *H Total Protein 6.0 L Albumin 3.4 Globulin 2.60 Albumin/Globulin 1.30 Ratio Stool Occult POSITIVE Blood Test 12/17/18 10:15 Urine Color YELLOW Urine Clarity CLEAR Urine pH 5.0 Urine Specific 1.011 [place] Urine Ketones NEGATIVE Urine Nitrite NEGATIVE Urine Bilirubin NEGATIVE Urine NEGATIVE Urobilinogen Urine Leukocyte NEGATIVE Esterase Urine Microscopic 99 H RBC Urine Microscopic 4 WBC Urine Squamous FEW Epithelial Cells Urine Mucus FEW A Urine Hemoglobin 3+ H Urine Osmolality 328 Urine Random 44.81 Creatinine Urine Random 48 Sodium Urine Glucose NEGATIVE Urine Total 30.0 H Protein Medications Medications Current Medications Dextrose (D50w Syringe) ONCE PRN IV DECREASED GLUCOSE; Start 12/16/18 at 18:30 Albuterol (Proventil 0.083% (Neb)) 2.5 mg Q2H RESP THERAPY PRN NEB SHORTNESS OF BREATH; Start 12/16/18 at 20:00 Ipratropium Darragh (Atrovent 0.02% (Neb)) 0.5 mg Q2H RESP THERAPY PRN NEB SHORTNESS OF BREATH; Start 12/16/18 at 20:00 Acetaminophen (Tylenol Liquid) 650 mg Q6H PRN PO PAIN LEVEL 1-3 OR FEVER Last administered on 12/17/18at 06:45; Admin Dose 650 MG; Start 12/16/18 at 20:00 Docusate Sodium (Colace) 100 mg Q12H PRN PO CONSTIPATION; Start 12/16/18 at 20:00 Bisacodyl (Dulcolax) 5 mg DAILY PRN PO CONSTIPATION; Start 12/16/18 at 20:00 Amlodipine Besylate (Norvasc) 5 mg DAILY PO ; Start 12/17/18 at 09:00 Atorvastatin Calcium (Lipitor) 40 mg QHS PO ; Start 12/17/18 at 21:00 Carvedilol (Coreg) 6.25 mg BID PO Last administered on 12/17/18at 08:49; Admin Dose 6.25 MG; Start 12/17/18 at 09:00 Levothyroxine Sodium (Synthroid) 150 mcg BEFORE BREAKFAST PO Last administered on 12/17/18 06:45; Admin Dose 150 MCG; Start 12/17/18 at 07:00 Fluticasone/ Vilanterol (Breo Ellipta 100-25 Mcg Inh) 1 inh DAILY INH Last administered on 12/17/18 08:44; Admin Dose 1 INH; Start 12/17/18 at 09:00 Pantoprazole (Protonix Tab) 40 mg DAILY@06 PO ; Start 12/18/18 at 06:00 Acetaminophen/ Hydrocodone Bitart (Havana (5/325)) 1 tab Q4H PRN PO MODERATE PAIN LEVEL 4-6 Last administered on 12/17/18at 10:21; Admin Dose 1 TAB; Start 12/17/18 at 10:30 LIDIA MOLINA MD Dec 17, 2018 14:02
--- NOTE | 2018-12-17 14:50 | PN ---
Date/Time of Note Date/Time of Note DATE: 12/17/18 TIME: 14:39 Assessment/Plan VTE Prophylaxis Risk [place] [facility] [place] risk: 11 SCD applied (from [facility] [place] Yes Pharmacological prophylaxis: NA/contraindicated Pharm contraindication: bleeding Lines/Catheters IV Catheter Type (from [facility]): Mid Line Assessment/Plan Hospital Course 1. Symptomatic anemia likely secondary to a GI source Stool occult is positive, denies vaginal bleeding GI consultation obtained CT abdomen shows no obvious source for bleeding Status post 2 units of blood Patient is on Xarelto for unknown reasons, continue to hold Continue PPI 2. CHF exacerbation Echo does show an EF 40% with moderate severe aortic stenosis Cardiology consultation appreciated Defer diuretics to cardiology 3. Severe hyponatremia likely secondary to CHF and diuretics Holding diuresis at this time Status post albumin 4. Acute kidney injury Baseline unknown Hold ARCHIE inhibitor 5. History of hypertension BP currently low, hold home ARCHIE inhibitor and Norvasc 6. NSTEMI likely secondary to demand Cardiology consultation patient 7. Diabetes Sliding scale A1c 6.6 8. Hypothyroidism Continue Synthroid Prophylaxis: SCDs, Protonix Result Diagram: 12/17/18 1419 12/17/18 0415 Results 24hrs Laboratory Tests Test 12/16/18 17:29 12/16/18 17:40 12/16/18 18:57 12/16/18 19:06 White Blood Count 14.9 H Red Blood Count 2.24 L Hemoglobin 6.0 *L Hematocrit 18.2 L Mean Corpuscular 81.3 L Volume Mean Corpuscular 26.8 L Hemoglobin Mean Corpuscular 33.0 Hemoglobin Concen t Red Cell 15.0 H Distribution Width Platelet Count 291 Mean Platelet 10.3 Volume Immature 0.900 H Granulocytes % Neutrophils % Lymphocytes % Monocytes % Eosinophils % Basophils % Nucleated Red 0.0 Blood Cells % Immature 0.130 H Granulocytes # Neutrophils # Lymphocytes # Monocytes # Eosinophils # Basophils # Nucleated Red Blood Cells # Pathologist YES Review (Hematolog y) Sodium Level 117 *L Potassium Level 6.8 *H Chloride Level 88 L Carbon Dioxide 18 L Level Anion Gap 11 Blood Urea 53 H Nitrogen Creatinine 1.28 H Est Glomerular Filtrat Rate mL/min Glucose Level 161 Calcium Level 8.5 Total Bilirubin 0.3 Direct Bilirubin 0.00 Indirect 0.3 Bilirubin Aspartate Amino 28 Transf (AST/SGOT) Alanine 13 Aminotransferase (ALT/SGPT) Alkaline 51 Phosphatase Troponin I 0.523 *H B-Type 36303 H Natriuretic Peptide Total Protein 6.0 L Albumin 3.3 Bedside Glucose 200 174 Urine Color YELLOW Urine Clarity SLIGHTLY CLOUDY A Urine pH 5.0 Urine Specific 1.011 [place] Urine Ketones NEGATIVE Urine Nitrite NEGATIVE Urine Bilirubin NEGATIVE Urine NEGATIVE Urobilinogen Urine Leukocyte NEGATIVE Esterase Urine Microscopic 3 RBC Urine Microscopic 1 WBC Urine Squamous FEW Epithelial Cells Urine Bacteria FEW A Urine Hemoglobin 2+ H Urine Glucose NEGATIVE Urine Total NEGATIVE Protein Test 12/16/18 19:42 12/16/18 23:54 12/17/18 04:00 12/17/18 04:15 Bedside Glucose 295 H White Blood Count 16.4 H 14.7 H Red Blood Count 2.88 #L 2.52 L Hemoglobin 7.9 #L 7.0 L Hematocrit 23.7 #L 20.8 L Mean Corpuscular 82.3 82.5 Volume Mean Corpuscular 27.4 L 27.8 L Hemoglobin Mean Corpuscular 33.3 33.7 Hemoglobin Concen t Red Cell 14.7 H 14.5 Distribution Width Platelet Count 282 307 Mean Platelet 10.1 10.2 Volume Immature 1.000 H 1.000 H Granulocytes % Neutrophils % 72.4 67.7 Lymphocytes % 16.0 20.5 Monocytes % 9.7 10.0 Eosinophils % 0.7 0.6 Basophils % 0.2 0.2 Nucleated Red 0.0 0.0 Blood Cells % Immature 0.160 H 0.150 H Granulocytes # Neutrophils # 11.8 H 10.0 H Lymphocytes # 2.6 3.0 H Monocytes # 1.6 H 1.5 H Eosinophils # 0.1 0.1 Basophils # 0.0 0.0 Nucleated Red 0.0 0.0 Blood Cells # Sodium Level 123 L 124 L Potassium Level 6.0 H 5.2 H Chloride Level 88 L 91 L Carbon Dioxide 20 L 22 Level Anion Gap 15 H 11 Blood Urea 50 H 46 H Nitrogen Creatinine 1.22 H 1.25 H Est Glomerular Filtrat Rate mL/min Glucose Level 161 155 Hemoglobin A1c 6.6 H Lactic Acid Level 1.3 Calcium Level 9.4 9.3 Total Bilirubin 0.8 Direct Bilirubin 0.00 Indirect 0.8 Bilirubin Aspartate Amino 32 Transf (AST/SGOT) Alanine 21 Aminotransferase (ALT/SGPT) Alkaline 55 Phosphatase Creatine Kinase 35 30 Creatine Kinase 2.7 2.9 Index Creatinine Kinase 0.94 0.88 MB (Mass) Troponin I 0.510 *H 0.451 *H Total Protein 6.0 L Albumin 3.4 Globulin 2.60 Albumin/Globulin 1.30 Ratio Stool Occult POSITIVE Blood Test 12/17/18 10:15 12/17/18 14:19 Urine Color YELLOW Urine Clarity CLEAR Urine pH 5.0 Urine Specific 1.011 [place] Urine Ketones NEGATIVE Urine Nitrite NEGATIVE Urine Bilirubin NEGATIVE Urine NEGATIVE Urobilinogen Urine Leukocyte NEGATIVE Esterase Urine Microscopic 99 H RBC Urine Microscopic 4 WBC Urine Squamous FEW Epithelial Cells Urine Mucus FEW A Urine Hemoglobin 3+ H Urine Osmolality 328 Urine Random 44.81 Creatinine Urine Random 48 Sodium Urine Glucose NEGATIVE Urine Total 30.0 H Protein White Blood Count 14.4 H Red Blood Count 2.77 L Hemoglobin 7.6 L Hematocrit 23.1 L Mean Corpuscular 83.4 Volume Mean Corpuscular 27.4 L Hemoglobin Mean Corpuscular 32.9 Hemoglobin Concen t Red Cell 14.3 Distribution Width Platelet Count 260 Mean Platelet 10.0 Volume Immature 0.900 H Granulocytes % Neutrophils % 75.8 Lymphocytes % 12.8 L Monocytes % 9.7 Eosinophils % 0.6 Basophils % 0.2 Nucleated Red 0.1 H Blood Cells % Immature 0.130 H Granulocytes # Neutrophils # 10.9 H Lymphocytes # 1.8 Monocytes # 1.4 H Eosinophils # 0.1 Basophils # 0.0 Nucleated Red 0.0 Blood Cells # Subjective 24 Hr Interval Summary Constitutional: no complaints Exam/Review of Systems Exam Vitals Vital Signs Date Temp Pulse Resp B/P (MAP) Pulse Ox O2 O2 Flow FiO2 Time Delivery Rate 12/17/18 64 12:00 12/17/18 10 87/51 (63) 11:30 12/17/18 Room Air 11:00 12/17/18 99 09:00 12/17/18 97.8 08:04 12/16/18 21 20:13 Intake and Output 12/16/18 12/16/18 12/17/18 1515:00 23:00 07:00 IntakeIntake Total 300 ml OutputOutput Total 100 ml 1675 ml BalanceBalance -100 ml -1375 ml Constitutional: alert, oriented Respiratory: clear to auscultation Cardiovascular: regular rate and rhythm Gastrointestinal: soft; No distended Musculoskeletal: nl extremities to inspection Results Results 24hrs Laboratory Tests Test 12/16/18 17:29 12/16/18 17:40 12/16/18 18:57 12/16/18 19:06 White Blood Count 14.9 H Red Blood Count 2.24 L Hemoglobin 6.0 *L Hematocrit 18.2 L Mean Corpuscular 81.3 L Volume Mean Corpuscular 26.8 L Hemoglobin Mean Corpuscular 33.0 Hemoglobin Concen t Red Cell 15.0 H Distribution Width Platelet Count 291 Mean Platelet 10.3 Volume Immature 0.900 H Granulocytes % Neutrophils % Lymphocytes % Monocytes % Eosinophils % Basophils % Nucleated Red 0.0 Blood Cells % Immature 0.130 H Granulocytes # Neutrophils # Lymphocytes # Monocytes # Eosinophils # Basophils # Nucleated Red Blood Cells # Pathologist YES Review (Hematolog y) Sodium Level 117 *L Potassium Level 6.8 *H Chloride Level 88 L Carbon Dioxide 18 L Level Anion Gap 11 Blood Urea 53 H Nitrogen Creatinine 1.28 H Est Glomerular Filtrat Rate mL/min Glucose Level 161 Calcium Level 8.5 Total Bilirubin 0.3 Direct Bilirubin 0.00 Indirect 0.3 Bilirubin Aspartate Amino 28 Transf (AST/SGOT) Alanine 13 Aminotransferase (ALT/SGPT) Alkaline 51 Phosphatase Troponin I 0.523 *H B-Type 92814 H Natriuretic Peptide Total Protein 6.0 L Albumin 3.3 Bedside Glucose 200 174 Urine Color YELLOW Urine Clarity SLIGHTLY CLOUDY A Urine pH 5.0 Urine Specific 1.011 [place] Urine Ketones NEGATIVE Urine Nitrite NEGATIVE Urine Bilirubin NEGATIVE Urine NEGATIVE Urobilinogen Urine Leukocyte NEGATIVE Esterase Urine Microscopic 3 RBC Urine Microscopic 1 WBC Urine Squamous FEW Epithelial Cells Urine Bacteria FEW A Urine Hemoglobin 2+ H Urine Glucose NEGATIVE Urine Total NEGATIVE Protein Test 12/16/18 19:42 12/16/18 23:54 12/17/18 04:00 12/17/18 04:15 Bedside Glucose 295 H White Blood Count 16.4 H 14.7 H Red Blood Count 2.88 #L 2.52 L Hemoglobin 7.9 #L 7.0 L Hematocrit 23.7 #L 20.8 L Mean Corpuscular 82.3 82.5 Volume Mean Corpuscular 27.4 L 27.8 L Hemoglobin Mean Corpuscular 33.3 33.7 Hemoglobin Concen t Red Cell 14.7 H 14.5 Distribution Width Platelet Count 282 307 Mean Platelet 10.1 10.2 Volume Immature 1.000 H 1.000 H Granulocytes % Neutrophils % 72.4 67.7 Lymphocytes % 16.0 20.5 Monocytes % 9.7 10.0 Eosinophils % 0.7 0.6 Basophils % 0.2 0.2 Nucleated Red 0.0 0.0 Blood Cells % Immature 0.160 H 0.150 H Granulocytes # Neutrophils # 11.8 H 10.0 H Lymphocytes # 2.6 3.0 H Monocytes # 1.6 H 1.5 H Eosinophils # 0.1 0.1 Basophils # 0.0 0.0 Nucleated Red 0.0 0.0 Blood Cells # Sodium Level 123 L 124 L Potassium Level 6.0 H 5.2 H Chloride Level 88 L 91 L Carbon Dioxide 20 L 22 Level Anion Gap 15 H 11 Blood Urea 50 H 46 H Nitrogen Creatinine 1.22 H 1.25 H Est Glomerular Filtrat Rate mL/min Glucose Level 161 155 Hemoglobin A1c 6.6 H Lactic Acid Level 1.3 Calcium Level 9.4 9.3 Total Bilirubin 0.8 Direct Bilirubin 0.00 Indirect 0.8 Bilirubin Aspartate Amino 32 Transf (AST/SGOT) Alanine 21 Aminotransferase (ALT/SGPT) Alkaline 55 Phosphatase Creatine Kinase 35 30 Creatine Kinase 2.7 2.9 Index Creatinine Kinase 0.94 0.88 MB (Mass) Troponin I 0.510 *H 0.451 *H Total Protein 6.0 L Albumin 3.4 Globulin 2.60 Albumin/Globulin 1.30 Ratio Stool Occult POSITIVE Blood Test 12/17/18 10:15 12/17/18 14:19 Urine Color YELLOW Urine Clarity CLEAR Urine pH 5.0 Urine Specific 1.011 [place] Urine Ketones NEGATIVE Urine Nitrite NEGATIVE Urine Bilirubin NEGATIVE Urine NEGATIVE Urobilinogen Urine Leukocyte NEGATIVE Esterase Urine Microscopic 99 H RBC Urine Microscopic 4 WBC Urine Squamous FEW Epithelial Cells Urine Mucus FEW A Urine Hemoglobin 3+ H Urine Osmolality 328 Urine Random 44.81 Creatinine Urine Random 48 Sodium Urine Glucose NEGATIVE Urine Total 30.0 H Protein White Blood Count 14.4 H Red Blood Count 2.77 L Hemoglobin 7.6 L Hematocrit 23.1 L Mean Corpuscular 83.4 Volume Mean Corpuscular 27.4 L Hemoglobin Mean Corpuscular 32.9 Hemoglobin Concen t Red Cell 14.3 Distribution Width Platelet Count 260 Mean Platelet 10.0 Volume Immature 0.900 H Granulocytes % Neutrophils % 75.8 Lymphocytes % 12.8 L Monocytes % 9.7 Eosinophils % 0.6 Basophils % 0.2 Nucleated Red 0.1 H Blood Cells % Immature 0.130 H Granulocytes # Neutrophils # 10.9 H Lymphocytes # 1.8 Monocytes # 1.4 H Eosinophils # 0.1 Basophils # 0.0 Nucleated Red 0.0 Blood Cells # Medications Medication Current Medications Dextrose (D50w Syringe) ONCE PRN IV DECREASED GLUCOSE; Start 12/16/18 at 18:30 Albuterol (Proventil 0.083% (Neb)) 2.5 mg Q2H RESP THERAPY PRN NEB SHORTNESS OF BREATH; Start 12/16/18 at 20:00 Ipratropium [place] (Atrovent 0.02% (Neb)) 0.5 mg Q2H RESP THERAPY PRN NEB SHORTNESS OF BREATH; Start 12/16/18 at 20:00 Acetaminophen (Tylenol Liquid) 650 mg Q6H PRN PO PAIN LEVEL 1-3 OR FEVER Last administered on 12/17/18at 06:45; Admin Dose 650 MG; Start 12/16/18 at 20:00 Docusate Sodium (Colace) 100 mg Q12H PRN PO CONSTIPATION; Start 12/16/18 at 20:00 Bisacodyl (Dulcolax) 5 mg DAILY PRN PO CONSTIPATION; Start 12/16/18 at 20:00 Atorvastatin Calcium (Lipitor) 40 mg QHS PO ; Start 12/17/18 at 21:00 Carvedilol (Coreg) 6.25 mg BID PO Last administered on 12/17/18at 08:49; Admin Dose 6.25 MG; Start 12/17/18 at 09:00 Levothyroxine Sodium (Synthroid) 150 mcg BEFORE BREAKFAST PO Last administered on 12/17/18at 06:45; Admin Dose 150 MCG; Start 12/17/18 at 07:00 Fluticasone/ Vilanterol (Breo Ellipta 100-25 Mcg Inh) 1 inh DAILY INH Last administered on 12/17/18at 08:44; Admin Dose 1 INH; Start 12/17/18 at 09:00 Pantoprazole (Protonix Tab) 40 mg DAILY@06 PO ; Start 12/18/18 at 06:00 Acetaminophen/ Hydrocodone Bitart ([place] (5/325)) 1 tab Q4H PRN PO MODERATE PAIN LEVEL 4-6 Last administered on 12/17/18at 10:21; Admin Dose 1 TAB; Start 12/17/18 at 10:30 Lisinopril (Zestril) 5 mg DAILY PO ; Start 12/18/18 at 09:00 FAITH SIMON Dec 17, 2018 14:50
[2018-12-17] MEDS: ATORVASTATIN 40 MG TAB PO SCH (20:30)
[2018-12-18] VITALS (15 sets, daily range): BP systolic 93–143; BP diastolic 44–69; PULSE 65–103; RESP 16–24
[2018-12-18] MEDS: PANTOPRAZOLE (EC) 40 MG TAB PO SCH (06:00)
[2018-12-18] MEDS: LEVOTHYROXINE 150 MCG TAB PO SCH (06:14)
[2018-12-18] MEDS ORDERED: FUROSEMIDE 40 MG INJ IV ONE (08:30)
[2018-12-18] MEDS: FLUTICASONE/VILANTEROL 100-25 INH SCH (08:56)
[2018-12-18] MEDS ORDERED: LISINOPRIL 5 MG TAB PO SCH (09:00)
--- NOTE | 2018-12-18 09:11 | PN ---
DATE: 12/18/2018 SUBJECTIVE: The patient is stable, no events overnight. The patient was transferred from intensive care unit to telemetry. The patient is n.p.o. pending for EGD this morning. OBJECTIVE: VITAL SIGNS: Blood pressure 143/69, respirations 18, pulse 101, temperature 98.7. HEENT: Head is normocephalic. NECK: Supple. HEART: Regular rate. LUNGS: Show diminished breath sounds at the base. ABDOMEN: Soft, nontender to palpation without rebound or guarding. EXTREMITIES: Negative for clubbing, cyanosis. Positive edema. DERMATOLOGIC: No rashes. MUSCULOSKELETAL: No joint effusion. NEUROLOGIC: No change in exam. MEDICATIONS: Reviewed. LABORATORY DATA: Shows a sodium of 126, creatinine 5.0, chloride 88, BUN 46, creatinine 1.29. White count 14.8, hemoglobin 7.7, platelet count is 248. The patient's urine electrolytes were reviewed. The patient's imaging studies were reviewed. IMAGING STUDIES: The patient's 2D echo was reviewed showed an ejection fraction of 40% and a dilated IVC consistent with elevated right arterial pressures. ASSESSMENT AND PLAN: This is an 83-year-old female who presents with: 1. Nonoliguric acute kidney injury with unknown baseline creatinine. Etiology of acute kidney injur y was secondary to hemodynamics, possible cardiorenal syndrome, NSAID effects. The patient's renal f unction is stable in the last 24 hours. The patient's 2D echo shows a dilated IVC consistent with ri ght arterial pressures. The patient's initial urinalysis was bland, no active sediment. The patient had nonglomerular proteinuria and FENa greater than 1%. At this point, we would continue current tr eatment plan. We will start the patient on diuretic therapy as the patient is clinically volume over loaded. We will continue to monitor renal function, I's and O's and electrolytes closely. 2. Hypernatremia. Etiology is multifactorial secondary to acute kidney injury causing decreased marci e water urinary excretion in conjunction with polydipsia, heart failure. The patient's sodium levels have appropriately improved approximately 7 mEq in a 24-hour period. At this point, we would contin ue current medical management. Continue diuretic therapy. We will place the patient on free water r estriction, no more than 1 liter daily, monitor closely. 3. Hypokalemia secondary to acute kidney injury and ARCHIE inhibitor effect, improved. Continue to mon itor. 4. Acute heart failure. The patient is clinically volume overloaded, 2D echo was reviewed. Continu e current diuretic regimen. Follow up with cardiology. Monitor electrolytes, renal function closely . 5. Anemia, questionable gastrointestinal bleed. The patient is pending EGD. 6. Mineral bone disorder, monitor calcium and phosphorus levels. 7. Elevated troponin, possibly demand ischemia versus non-ST elevation myocardial infarction type 1. Continue to monitor serial troponins. Continue 2D echo. Continue medical management. 8. Diabetes. Continue current insulin regimen. 9. Hypertension. Continue current blood pressure regimen. 10. Hypothyroidism. Continue Synthroid. 11. Gastrointestinal and deep vein thrombosis prophylaxis. Dictated By: JOVAN GRAVES DO NR/NTS Conf#: [id number] DID#: [id number] CC: BETZY HERNANDEZ MD; CECILIA JOHN MD; FAITH SIMON MD;*EndCC*
--- NOTE | 2018-12-18 10:33 | CONS ---
Consult Date/Type/Reason Admit Date/Time Dec 16, 2018 at 18:55 Initial Consult Date 12/17/18 Requesting Provider: BETZY HERNANDEZ Date/Time of Note DATE: 12/18/18 TIME: 10:30 Subjective Interventional cardiology follow-up progress note Subjective: Discussed with the staff and telemetry was reviewed. Patient with normal sinus rhythm. Patient with no chest pain or pressure but complains of shortness of breath. O2 sat has remained stable though No active bleeding is reported now Objective: General: Obese female in mild respiratory distress HEENT: NC/AT. pupils are equal. round. NECK: no stridor. CV: RRR. systolic murmur; no gallop or rubs. PULM: no wheezing minimal rhonchi. GI: SOFT, NT, ND, no rebound or guarding Extremity: + B/L LE edema. no clubbing. neuro: awake and alert, OX3. Psych: calm and pleasant rectal: deferred Sinus normal sinus rhythm. Poor R wave progression constant anterior infarct age undetermined Echocardiogram was personally reviewed which shows: Normal left ventricular cavity size. Moderate concentric left ventricular hypertrophy. Severe left ventricular systolic dysfunction. Ejection fraction is visually estimated at 40 %. Abnormal Diastolic Function. These segments of the LV are hypokinetic apical anterior segment, apical lateral segment, inferior apex segment and apical septum. There is moderate enlargement of left atrium. Normal appearance and function of the mitral valve with trace physiologic regurgitation. Mild mitral leaflet calcification. Moderate mitral annular calcification. Mild mitral valve regurgitation. The regurgitation jet is eccentrically directed which may underestimate the severity of mitral regurgitation. Mild mitral stenosis. Mitral valve Max Velocity 2.08 m/sec. MaxPG 17.00 mmHg. MeanPG 6.00 mmHg. . Moderate to severe aortic stenosis. Aortic valve Max velocity 3.27 m/sec. Max PG 43.00 mmHg. Mean PG 25.00 mmHg. Aortic valve area 0.68 cm2. Moderate aortic valve regurgitation. Normal appearance of the tricuspid valve. Estimated peak PA systolic pressure 74 mmHg. There is moderate tricuspid regurgitation Objective Vitals Vital Signs Date Temp Pulse Resp B/P (MAP) Pulse Ox O2 O2 Flow FiO2 Time Delivery Rate 12/18/18 103 08:01 12/18/18 98.7 18 143/69 98 Room Air 07:48 (93) 12/18/18 2.0 28 01:01 Intake and Output 12/17/18 12/17/18 12/18/18 1414:59 22:59 06:59 IntakeIntake Total 650 ml 100 ml OutputOutput Total 500 ml 1500 ml BalanceBalance 150 ml -1400 ml Results/Medications Result Diagram: 12/18/18 0735 12/18/18 0735 Results 24 hrs Laboratory Tests Test 12/17/18 14:19 12/17/18 16:51 12/17/18 21:08 12/18/18 07:20 White Blood Count 14.4 H 14.8 H Red Blood Count 2.77 L 2.79 L Hemoglobin 7.6 L 7.7 L Hematocrit 23.1 L 23.2 L Mean Corpuscular 83.4 83.2 Volume Mean Corpuscular 27.4 L 27.6 L Hemoglobin Mean Corpuscular 32.9 33.2 Hemoglobin Concen t Red Cell 14.3 14.6 H Distribution Width Platelet Count 260 258 Mean Platelet 10.0 10.1 Volume Immature 0.900 H 0.900 H Granulocytes % Neutrophils % 75.8 72.1 Lymphocytes % 12.8 L 15.5 Monocytes % 9.7 10.6 Eosinophils % 0.6 0.7 Basophils % 0.2 0.2 Nucleated Red 0.1 H 0.2 H Blood Cells % Immature 0.130 H 0.130 H Granulocytes # Neutrophils # 10.9 H 10.7 H Lymphocytes # 1.8 2.3 Monocytes # 1.4 H 1.6 H Eosinophils # 0.1 0.1 Basophils # 0.0 0.0 Nucleated Red 0.0 0.0 Blood Cells # Sodium Level 123 L 124 L 126 L Potassium Level 4.8 4.8 5.0 Chloride Level 90 L 90 L 88 L Carbon Dioxide 22 23 25 Level Anion Gap 11 11 13 Blood Urea 47 H 47 H 46 H Nitrogen Creatinine 1.29 H 1.29 H 1.29 H Est Glomerular Filtrat Rate mL/min Glucose Level 212 188 165 Calcium Level 9.0 9.0 9.3 Bedside Glucose 231 H Test 12/18/18 07:35 12/18/18 08:32 White Blood Count 24.7 #H Red Blood Count 3.15 L Hemoglobin 8.8 L Hematocrit 26.8 L Mean Corpuscular 85.1 Volume Mean Corpuscular 27.9 L Hemoglobin Mean Corpuscular 32.8 Hemoglobin Concen t Red Cell 14.7 H Distribution Width Platelet Count 337 # Mean Platelet 10.1 Volume Immature 0.900 H Granulocytes % Neutrophils % 85.4 H Lymphocytes % 5.7 L Monocytes % 7.5 Eosinophils % 0.3 Basophils % 0.2 Nucleated Red 0.2 H Blood Cells % Immature 0.220 H Granulocytes # Neutrophils # 21.1 H Lymphocytes # 1.4 Monocytes # 1.9 H Eosinophils # 0.1 Basophils # 0.1 Nucleated Red 0.0 Blood Cells # Sodium Level 128 L Potassium Level 4.7 Chloride Level 91 L Carbon Dioxide 23 Level Anion Gap 14 H Blood Urea 40 H Nitrogen Creatinine 1.17 H Est Glomerular Filtrat Rate mL/min Glucose Level 178 Calcium Level 9.5 Phosphorus Level 4.3 Magnesium Level 1.8 Creatine Kinase 40 Creatine Kinase 4.1 Index Creatinine Kinase 1.63 MB (Mass) Troponin I 0.583 *H B-Type 04844 H Natriuretic Peptide Triglycerides 72 Level Cholesterol Level 76 L LDL Cholesterol, 23 Calculated HDL Cholesterol 39 Cholesterol/HDL 1.9 Ratio Random Cortisol 33.3 Lab Scanned BLOOD TRANSFUSIO Report N Home Meds Reported Medications Fenofibrate, Micronized* (Fenofibrate*) 160 Mg Tablet, 160 MG PO DAILY, TAB 12/16/18 Pioglitazone Hcl* (Actos*) 45 Mg Tablet, 45 MG PO DAILY, #30 TAB 12/16/18 Atorvastatin* (Atorvastatin*) 40 Mg Tablet, 40 MG PO QHS, #30 TAB 12/16/18 Glimepiride* (Glimepiride*) 2 Mg Tablet, 2 MG PO WITH BREAKFAST DINNE, TAB 12/16/18 Aspirin (Low Dose Aspirin) 81 Mg Tablet.dr, 81 MG PO DAILY, #30 TAB 12/16/18 Levothyroxine Sodium* (Levoxyl*) 150 Mcg Tablet, 150 MCG PO BEFORE BREAKFAST, #30 TAB 12/16/18 Insulin Aspart (Novolog Mix ()) 100 Units/Ml Soln, 0 SC PRN, VIAL PT NOT SURE 12/16/18 Furosemide* (Furosemide*) 40 Mg Tablet, 40 MG PO DAILY, TAB 12/16/18 Amlodipine Besylate* (Norvasc*) 5 Mg Tablet, 5 MG PO DAILY, TAB 12/16/18 Rivaroxaban* (Xarelto*) 20 Mg Tablet, 20 MG PO WITH DINNER, TAB 3/24/19 Celecoxib* (Celebrex*) 200 Mg Capsule, 200 MG PO BID, CAP 12/16/18 Salmeterol Xinaf/Fluticasone* (Advair*) 250-50 Diskus Inhaler, 1 INH INHALATION BID, #1 INHALER 12/16/18 Carvedilol* (Carvedilol*) 6.25 Mg Tablet, 6.25 MG PO BID, #60 TAB 12/16/18 Olmesartan Medoxomil (Benicar) 40 Mg Tablet, 40 MG PO DAILY, #30 TAB 12/16/18 Ezetimibe* (Zetia*) 10 Mg Tablet, 10 MG PO HS, TAB 12/16/18 Ferrous Sulfate* (Ferrous Sulfate*) 325 Mg Tabec, 325 MG PO DAILY, TAB 12/16/18 Magnesium Oxide* (Mag-Oxide*) 400 Mg Tablet, 400 MG PO DAILY, TAB 12/16/18 Lisinopril* (Lisinopril*) 10 Mg Tablet, 10 MG PO DAILY, #30 TAB 12/16/18 Medications Current Medications Dextrose (D50w Syringe) ONCE PRN IV DECREASED GLUCOSE; Start 12/16/18 at 18:30 Albuterol (Proventil 0.083% (Neb)) 2.5 mg Q2H RESP THERAPY PRN NEB SHORTNESS OF BREATH; Start 12/16/18 at 20:00 Ipratropium [place] (Atrovent 0.02% (Neb)) 0.5 mg Q2H RESP THERAPY PRN NEB SHORTNESS OF BREATH; Start 12/16/18 at 20:00 Acetaminophen (Tylenol Liquid) 650 mg Q6H PRN PO PAIN LEVEL 1-3 OR FEVER Last administered on 12/17/18at 06:45; Admin Dose 650 MG; Start 12/16/18 at 20:00 Docusate Sodium (Colace) 100 mg Q12H PRN PO CONSTIPATION; Start 12/16/18 at 20:00 Bisacodyl (Dulcolax) 5 mg DAILY PRN PO CONSTIPATION; Start 12/16/18 at 20:00 Atorvastatin Calcium (Lipitor) 40 mg QHS PO Last administered on 12/17/18at 20:30; Admin Dose 40 MG; Start 12/17/18 at 21:00 Carvedilol (Coreg) 6.25 mg BID PO Last administered on 12/18/18 08:35; Admin Dose 6.25 MG; Start 12/17/18 at 09:00 Levothyroxine Sodium (Synthroid) 150 mcg BEFORE BREAKFAST PO Last administered on 12/17/18 06:45; Admin Dose 150 MCG; Start 12/17/18 at 07:00 Fluticasone/ Vilanterol (Breo Ellipta 100-25 Mcg Inh) 1 inh DAILY INH Last administered on 12/17/18 08:44; Admin Dose 1 INH; Start 12/17/18 at 09:00 Pantoprazole (Protonix Tab) 40 mg DAILY@06 PO ; Start 12/18/18 at 06:00 Acetaminophen/ Hydrocodone Bitart ([place] (5/325)) 1 tab Q4H PRN PO MODERATE PAIN LEVEL 4-6 Last administered on 12/17/18at 10:21; Admin Dose 1 TAB; Start 12/17/18 at 10:30 Assessment/Plan Hospital Course (Demo Recall) Abnormal troponin probably secondary to below Aortic stenosis Cardiomyopathy Congestive heart failure Severe anemia possibly GI bleed History of hypertension currently mostly hypotensive though Obesity and possible obstructive sleep apnea Pulmonary hypertension Hyponatremia Cardiovascular preop evaluation for endoscopy Recommendations: Patient off of any aspirin due to concern about bleeding and GI bleed in severe anemia Fluid management as per renal. IV Lasix was already given this morning. Transfusion as needed Continue with lisinopril No further cardiac workup would be indicated prior to the proposed endoscopy. Patient would be at moderate risk of cardiovascular event given her multiple comorbidities however. Thank you for his referral. I will continue to follow along with you LIDIA MOLINA MD [facility] LIDIA MOLINA MD Dec 18, 2018 10:33
--- NOTE | 2018-12-18 15:43 | PN ---
Date/Time of Note Date/Time of Note DATE: 12/18/18 TIME: 15:42 Assessment/Plan VTE Prophylaxis Risk score (from [facility] [place])>0 risk: 6 SCD applied (from [facility] [place]): Yes Pharmacological prophylaxis: NA/contraindicated Pharm contraindication: bleeding Lines/Catheters [facility] Assessment/Plan Hospital Course 1. Symptomatic anemia likely secondary to a GI source Stool occult is positive, denies vaginal bleeding GI consultation appreciated, colonoscopy today CT abdomen shows no obvious source for bleeding Status post 2 units of blood Patient is on Xarelto for unknown reasons, continue to hold Continue PPI 2. CHF exacerbation Echo does show an EF 40% with moderate severe aortic stenosis Cardiology consultation appreciated Defer diuretics to cardiology, Lasix IV x1 today 3. Severe hyponatremia likely secondary to CHF and diuretics Holding diuresis at this time Status post albumin 4. Acute kidney injury-improving Baseline unknown Hold ARCHIE inhibitor Nephrology consultation appreciated 5. History of hypertension BP currently low, hold home ARCHIE inhibitor and Norvasc 6. NSTEMI likely secondary to demand Cardiology consultation appreciated 7. Diabetes Sliding scale A1c 6.6 8. Hypothyroidism Continue Synthroid Prophylaxis: SCDs, Protonix Result Diagram: 12/18/18 0735 12/18/18 0735 Results 24hrs Laboratory Tests Test 12/17/18 16:51 12/17/18 21:08 12/18/18 07:20 12/18/18 07:35 White Blood Count 14.8 H 24.7 #H Red Blood Count 2.79 L 3.15 L Hemoglobin 7.7 L 8.8 L Hematocrit 23.2 L 26.8 L Mean Corpuscular 83.2 85.1 Volume Mean Corpuscular 27.6 L 27.9 L Hemoglobin Mean Corpuscular 33.2 32.8 Hemoglobin Concen t Red Cell 14.6 H 14.7 H Distribution Width Platelet Count 258 337 # Mean Platelet 10.1 10.1 Volume Immature 0.900 H 0.900 H Granulocytes % Neutrophils % 72.1 85.4 H Lymphocytes % 15.5 5.7 L Monocytes % 10.6 7.5 Eosinophils % 0.7 0.3 Basophils % 0.2 0.2 Nucleated Red 0.2 H 0.2 H Blood Cells % Immature 0.130 H 0.220 H Granulocytes # Neutrophils # 10.7 H 21.1 H Lymphocytes # 2.3 1.4 Monocytes # 1.6 H 1.9 H Eosinophils # 0.1 0.1 Basophils # 0.0 0.1 Nucleated Red 0.0 0.0 Blood Cells # Sodium Level 124 L 126 L 128 L Potassium Level 4.8 5.0 4.7 Chloride Level 90 L 88 L 91 L Carbon Dioxide 23 25 23 Level Anion Gap 11 13 14 H Blood Urea 47 H 46 H 40 H Nitrogen Creatinine 1.29 H 1.29 H 1.17 H Est Glomerular Filtrat Rate mL/min Glucose Level 188 165 178 Calcium Level 9.0 9.3 9.5 Bedside Glucose 231 H Phosphorus Level 4.3 Magnesium Level 1.8 Creatine Kinase 40 Creatine Kinase 4.1 Index Creatinine Kinase 1.63 MB (Mass) Troponin I 0.583 *H B-Type 17703 H Natriuretic Peptide Triglycerides 72 Level Cholesterol Level 76 L LDL Cholesterol, 23 Calculated HDL Cholesterol 39 Cholesterol/HDL 1.9 Ratio Random Cortisol 33.3 Test 12/18/18 08:32 12/18/18 11:51 Lab Scanned BLOOD TRANSFUSIO Report N Bedside Glucose 225 H Subjective 24 Hr Interval Summary Constitutional: no complaints Exam/Review of Systems Exam Vitals Vital Signs Date Temp Pulse Resp B/P (MAP) Pulse Ox O2 O2 Flow FiO2 Time Delivery Rate 12/18/18 97.7 75 18 117/58 100 Room Air 15:08 (77) 12/18/18 2.0 28 01:01 Intake and Output 12/17/18 12/17/18 12/18/18 1515:00 23:00 07:00 IntakeIntake Total 650 ml 100 ml OutputOutput Total 500 ml 1500 ml BalanceBalance 150 ml -1400 ml Constitutional: alert, oriented Respiratory: clear to auscultation Cardiovascular: regular rate and rhythm Gastrointestinal: soft; No distended Musculoskeletal: nl extremities to inspection Results Results 24hrs Laboratory Tests Test 12/17/18 16:51 12/17/18 21:08 12/18/18 07:20 12/18/18 07:35 White Blood Count 14.8 H 24.7 #H Red Blood Count 2.79 L 3.15 L Hemoglobin 7.7 L 8.8 L Hematocrit 23.2 L 26.8 L Mean Corpuscular 83.2 85.1 Volume Mean Corpuscular 27.6 L 27.9 L Hemoglobin Mean Corpuscular 33.2 32.8 Hemoglobin Concen t Red Cell 14.6 H 14.7 H Distribution Width Platelet Count 258 337 # Mean Platelet 10.1 10.1 Volume Immature 0.900 H 0.900 H Granulocytes % Neutrophils % 72.1 85.4 H Lymphocytes % 15.5 5.7 L Monocytes % 10.6 7.5 Eosinophils % 0.7 0.3 Basophils % 0.2 0.2 Nucleated Red 0.2 H 0.2 H Blood Cells % Immature 0.130 H 0.220 H Granulocytes # Neutrophils # 10.7 H 21.1 H Lymphocytes # 2.3 1.4 Monocytes # 1.6 H 1.9 H Eosinophils # 0.1 0.1 Basophils # 0.0 0.1 Nucleated Red 0.0 0.0 Blood Cells # Sodium Level 124 L 126 L 128 L Potassium Level 4.8 5.0 4.7 Chloride Level 90 L 88 L 91 L Carbon Dioxide 23 25 23 Level Anion Gap 11 13 14 H Blood Urea 47 H 46 H 40 H Nitrogen Creatinine 1.29 H 1.29 H 1.17 H Est Glomerular Filtrat Rate mL/min Glucose Level 188 165 178 Calcium Level 9.0 9.3 9.5 Bedside Glucose 231 H Phosphorus Level 4.3 Magnesium Level 1.8 Creatine Kinase 40 Creatine Kinase 4.1 Index Creatinine Kinase 1.63 MB (Mass) Troponin I 0.583 *H B-Type 36292 H Natriuretic Peptide Triglycerides 72 Level Cholesterol Level 76 L LDL Cholesterol, 23 Calculated HDL Cholesterol 39 Cholesterol/HDL 1.9 Ratio Random Cortisol 33.3 Test 12/18/18 08:32 12/18/18 11:51 Lab Scanned BLOOD TRANSFUSIO Report N Bedside Glucose 225 H Medications Medication Current Medications Dextrose (D50w Syringe) ONCE PRN IV DECREASED GLUCOSE; Start 12/16/18 at 18:30 Albuterol (Proventil 0.083% (Neb)) 2.5 mg Q2H RESP THERAPY PRN NEB SHORTNESS OF BREATH; Start 12/16/18 at 20:00 Ipratropium [place] (Atrovent 0.02% (Neb)) 0.5 mg Q2H RESP THERAPY PRN NEB SHORTNESS OF BREATH; Start 12/16/18 at 20:00 Acetaminophen (Tylenol Liquid) 650 mg Q6H PRN PO PAIN LEVEL 1-3 OR FEVER Last administered on 12/17/18at 06:45; Admin Dose 650 MG; Start 12/16/18 at 20:00 Docusate Sodium (Colace) 100 mg Q12H PRN PO CONSTIPATION; Start 12/16/18 at 20:00 Bisacodyl (Dulcolax) 5 mg DAILY PRN PO CONSTIPATION; Start 12/16/18 at 20:00 Atorvastatin Calcium (Lipitor) 40 mg QHS PO Last administered on 12/17/18 20:30; Admin Dose 40 MG; Start 12/17/18 at 21:00 Carvedilol (Coreg) 6.25 mg BID PO Last administered on 12/18/18 08:35; Admin Dose 6.25 MG; Start 12/17/18 at 09:00 Levothyroxine Sodium (Synthroid) 150 mcg BEFORE BREAKFAST PO Last administered on 12/17/18 06:45; Admin Dose 150 MCG; Start 12/17/18 at 07:00 Fluticasone/ Vilanterol (Breo Ellipta 100-25 Mcg Inh) 1 inh DAILY INH Last administered on 12/17/18 08:44; Admin Dose 1 INH; Start 12/17/18 at 09:00 Pantoprazole (Protonix Tab) 40 mg DAILY@06 PO ; Start 12/18/18 at 06:00 Acetaminophen/ Hydrocodone Bitart ([place] (5/325)) 1 tab Q4H PRN PO MODERATE PAIN LEVEL 4-6 Last administered on 12/17/18 10:21; Admin Dose 1 TAB; Start 12/17/18 at 10:30 FAITH SIMON Dec 18, 2018 15:43
--- NOTE | 2018-12-18 16:20 | PREAC ---
Date/Time of Note Date/Time of Note DATE: 12/18/18 TIME: 16:17 Anesthesia Eval and Record Evaluation Time Pre-Procedure Interview DATE: 12/18/18 TIME: 16:17 Age 83 Sex female NPO: 8 hrs Preoperative diagnosis GI bleed Planned procedure EGD Past Medical History Past Medical History: Includes Cardio: HTN, Dyslipidemia Endo: Diabetes, Hypothyroid Renal: HARINI Heme: Anemia Surgery & Anesthesia Issues No known issue Meds Anticoagulation: No Beta Rubin within 24 hr: No Reason Beta Rubin not given: Pt. not on B-Rubin Reported Medications Fenofibrate, Micronized* (Fenofibrate*) 160 Mg Tablet, 160 MG PO DAILY, TAB 12/16/18 Pioglitazone Hcl* (Actos*) 45 Mg Tablet, 45 MG PO DAILY, #30 TAB 12/16/18 Atorvastatin* (Atorvastatin*) 40 Mg Tablet, 40 MG PO QHS, #30 TAB 12/16/18 Glimepiride* (Glimepiride*) 2 Mg Tablet, 2 MG PO WITH BREAKFAST DINNE, TAB 12/16/18 Aspirin (Low Dose Aspirin) 81 Mg Tablet.dr, 81 MG PO DAILY, #30 TAB 12/16/18 Levothyroxine Sodium* (Levoxyl*) 150 Mcg Tablet, 150 MCG PO BEFORE BREAKFAST, #30 TAB 12/16/18 Insulin Aspart (Novolog Mix ()) 100 Units/Ml Soln, 0 SC PRN, VIAL PT NOT SURE 12/16/18 Furosemide* (Furosemide*) 40 Mg Tablet, 40 MG PO DAILY, TAB 12/16/18 Amlodipine Besylate* (Norvasc*) 5 Mg Tablet, 5 MG PO DAILY, TAB 12/16/18 Rivaroxaban* (Xarelto*) 20 Mg Tablet, 20 MG PO WITH DINNER, TAB 12/16/18 Celecoxib* (Celebrex*) 200 Mg Capsule, 200 MG PO BID, CAP 12/16/18 Salmeterol Xinaf/Fluticasone* (Advair*) 250-50 Diskus Inhaler, 1 INH INHALATION BID, #1 INHALER 12/16/18 Carvedilol* (Carvedilol*) 6.25 Mg Tablet, 6.25 MG PO BID, #60 TAB 12/16/18 Olmesartan Medoxomil (Benicar) 40 Mg Tablet, 40 MG PO DAILY, #30 TAB 12/16/18 Ezetimibe* (Zetia*) 10 Mg Tablet, 10 MG PO HS, TAB 12/16/18 Ferrous Sulfate* (Ferrous Sulfate*) 325 Mg Tabec, 325 MG PO DAILY, TAB 12/16/18 Magnesium Oxide* (Mag-Oxide*) 400 Mg Tablet, 400 MG PO DAILY, TAB 12/16/18 Lisinopril* (Lisinopril*) 10 Mg Tablet, 10 MG PO DAILY, #30 TAB 12/16/18 Current Medications Dextrose (D50w Syringe) ONCE PRN IV DECREASED GLUCOSE; Start 12/16/18 at 18:30 Albuterol (Proventil 0.083% (Neb)) 2.5 mg Q2H RESP THERAPY PRN NEB SHORTNESS OF BREATH; Start 12/16/18 at 20:00 Ipratropium [place] (Atrovent 0.02% (Neb)) 0.5 mg Q2H RESP THERAPY PRN NEB SHORTNESS OF BREATH; Start 12/16/18 at 20:00 Acetaminophen (Tylenol Liquid) 650 mg Q6H PRN PO PAIN LEVEL 1-3 OR FEVER Last administered on 12/17/18at 06:45; Admin Dose 650 MG; Start 12/16/18 at 20:00 Docusate Sodium (Colace) 100 mg Q12H PRN PO CONSTIPATION; Start 12/16/18 at 20:00 Bisacodyl (Dulcolax) 5 mg DAILY PRN PO CONSTIPATION; Start 12/16/18 at 20:00 Atorvastatin Calcium (Lipitor) 40 mg QHS PO Last administered on 12/17/18at 20:30; Admin Dose 40 MG; Start 12/17/18 at 21:00 Carvedilol (Coreg) 6.25 mg BID PO Last administered on 12/18/18at 08:35; Admin Dose 6.25 MG; Start 12/17/18 at 09:00 Levothyroxine Sodium (Synthroid) 150 mcg BEFORE BREAKFAST PO Last administered on 12/17/18at 06:45; Admin Dose 150 MCG; Start 12/17/18 at 07:00 Fluticasone/ Vilanterol (Breo Ellipta 100-25 Mcg Inh) 1 inh DAILY INH Last administered on 12/17/18at 08:44; Admin Dose 1 INH; Start 12/17/18 at 09:00 Pantoprazole (Protonix Tab) 40 mg DAILY@06 PO ; Start 12/18/18 at 06:00 Acetaminophen/ Hydrocodone Bitart ([place] (5/325)) 1 tab Q4H PRN PO MODERATE PAIN LEVEL 4-6 Last administered on 12/17/18at 10:21; Admin Dose 1 TAB; Start 12/17/18 at 10:30 Meds reviewed: Yes Allergies Coded Allergies: No Known Allergy (Unverified , 12/16/18) Allergies Reviewed: Yes Labs/Studies Labs Reviewed: Reviewed by anesthesiologist Result Diagram: 12/18/18 0735 12/18/18 0735 Laboratory Tests 12/18/18 07:35 test: N/A Studies: ECG (NSR), 2D Echo (EF 40%) Pre-procedure Exam Last vitals Vital Signs Date Temp Pulse Resp B/P (MAP) Pulse Ox O2 O2 Flow FiO2 Time Delivery Rate 12/18/18 97.7 75 18 117/58 100 Room Air 15:08 (77) 12/18/18 2.0 28 01:01 Airway: Adequate mouth opening Mallampati: Mallampati II Teeth: Normal Lung: Normal Heart: Normal ASA Physical Status ASA physical status: 3 Emergency: None Planned Anesthetic General/MAC: MAC Pre-operative Attestations Prior to commencing anesthesia and surgery, the patient was re-evaluated, there was verification of: *The patient's identity *The results of appropriate recent lab work and preoperative vital signs *The above evaluation not changing prior to induction *Anesthetic plan, risk benefits, alternative and complications discussed with patient/family; questions answered; patient/family understands, accepts and wishes to proceed. GINA ARTHUR Dec 18, 2018 16:20
[2018-12-18] MEDS ORDERED: PROPOFOL 20 ML ONE (16:52)
--- NOTE | 2018-12-18 16:53 | PAC ---
Date/Time of Note Date/Time of Note DATE: 12/18/18 TIME: 16:52 Post-Anesthesia Notes Post-Anesthesia Note Last documented vital signs Vital Signs Date Temp Pulse Resp B/P (MAP) Pulse Ox O2 O2 Flow FiO2 Time Delivery Rate 12/18/18 98.7 75 18 117/58 100 Room Air 17:08 (77) 12/18/18 2.0 28 01:01 Activity: WNL Respiratory function: WNL Cardiovascular function: WNL Mental status: Baseline Pain reasonably controlled: Yes Hydration appropriate: Yes Nausea/Vomiting absent: Yes YULIA HOBBS MD Dec 18, 2018 16:53
[2018-12-18] MEDS: ACETAMINOPHEN 650MG/20.3ML CUP PO PRN (19:03)
[2018-12-18] MEDS: ATORVASTATIN 40 MG TAB PO SCH (21:36)
[2018-12-18] MEDS: HYDROCODONE/APAP (5/325) TAB PO PRN (21:37)
[2018-12-18] MEDS ORDERED: GLUCOSE GEL 15 GRAM TUBE PO PRN ×2 (22:30)
[2018-12-18] MEDS ORDERED: GLUCOSE GEL 15 GRAM TUBE BUCCAL PRN (22:30)
[2018-12-18] MEDS ORDERED: GLUCAGON 1 MG INJ IM PRN (22:30)
[2018-12-18] MEDS ORDERED: DEXTROSE 50% 50 ML SYRINGE IV PRN ×2 (22:30)
[2018-12-18] MEDS: INSULIN ASPART [NOVOLOG] 3 ML PEN SC SCH (23:37)
[2018-12-19] VITALS (10 sets, daily range): BP systolic 95–112; BP diastolic 50–56; PULSE 56–70; RESP 18–20
[2018-12-19] MEDS: PANTOPRAZOLE (EC) 40 MG TAB PO SCH (06:06)
[2018-12-19] MEDS: LEVOTHYROXINE 150 MCG TAB PO SCH (06:06)
[2018-12-19] MEDS: HYDROCODONE/APAP (5/325) TAB PO PRN (06:59)
[2018-12-19] MEDS ORDERED: FUROSEMIDE 40 MG INJ IV ONE (08:30)
[2018-12-19] MEDS: INSULIN ASPART [NOVOLOG] 3 ML PEN SC SCH ×2 (08:36→11:37)
--- NOTE | 2018-12-19 08:49 | CONS ---
Consult Date/Type/Reason Admit Date/Time Dec 16, 2018 at 18:55 Initial Consult Date 12/17/18 Requesting Provider: BETZY HERNANDEZ Date/Time of Note DATE: 12/19/18 TIME: 08:44 Subjective Interventional cardiology follow-up progress note Subjective: Discussed with the staff and telemetry was reviewed. Patient with normal sinus rhythm. Patient with no chest pain or pressure AND NO shortness of breath today and wants to go home . O2 sat has remained stable No active bleeding is reported now s/p EGD 12/18 Objective: General: Obese female in mild respiratory distress HEENT: NC/AT. pupils are equal. round. NECK: no stridor. CV: RRR. systolic murmur; no gallop or rubs. PULM: no wheezing minimal rhonchi. GI: SOFT, NT, ND, no rebound or guarding Extremity: + B/L LE edema. no clubbing. neuro: awake and alert, OX3. Psych: calm and pleasant rectal: deferred Sinus normal sinus rhythm. Poor R wave progression constant anterior infarct age undetermined Echocardiogram was personally reviewed which shows: Normal left ventricular cavity size. Moderate concentric left ventricular hypertrophy. Severe left ventricular systolic dysfunction. Ejection fraction is visually estimated at 40 %. Abnormal Diastolic Function. These segments of the LV are hypokinetic apical anterior segment, apical lateral segment, inferior apex segment and apical septum. There is moderate enlargement of left atrium. Normal appearance and function of the mitral valve with trace physiologic regurgitation. Mild mitral leaflet calcification. Moderate mitral annular calcification. Mild mitral valve regurgitation. The regurgitation jet is eccentrically directed which may underestimate the severity of mitral regurgitation. Mild mitral stenosis. Mitral valve Max Velocity 2.08 m/sec. MaxPG 17.00 mmHg. MeanPG 6.00 mmHg. . Moderate to severe aortic stenosis. Aortic valve Max velocity 3.27 m/sec. Max PG 43.00 mmHg. Mean PG 25.00 mmHg. Aortic valve area 0.68 cm2. Moderate aortic valve regurgitation. Normal appearance of the tricuspid valve. Estimated peak PA systolic pressure 74 mmHg. There is moderate tricuspid regurgitation Objective Vitals Vital Signs Date Temp Pulse Resp B/P (MAP) Pulse Ox O2 O2 Flow FiO2 Time Delivery Rate 12/19/18 97.8 64 18 101/54 97 Nasal 07:32 (70) Cannula 12/19/18 2.0 05:46 12/18/18 28 01:01 Intake and Output 12/18/18 12/18/18 12/19/18 1515:00 23:00 07:00 IntakeIntake Total 200 ml 472 ml OutputOutput Total 1000 ml 150 ml BalanceBalance -800 ml 322 ml Results/Medications Result Diagram: 12/19/18 0604 12/19/18 0604 Results 24 hrs Laboratory Tests Test 12/18/18 11:51 12/18/18 23:35 12/19/18 03:18 12/19/18 06:04 Bedside Glucose 225 H 224 H 231 H White Blood Count 15.9 #H Red Blood Count 2.66 L Hemoglobin 7.4 L Hematocrit 22.7 L Mean Corpuscular 85.3 Volume Mean Corpuscular 27.8 L Hemoglobin Mean Corpuscular 32.6 Hemoglobin Concent Red Cell 15.0 H Distribution Width Platelet Count 267 # Mean Platelet Volume 9.8 Immature 0.800 H Granulocytes % Neutrophils % 75.2 Lymphocytes % 13.7 L Monocytes % 9.2 Eosinophils % 0.9 Basophils % 0.2 Nucleated Red Blood 0.0 Cells % Immature 0.120 H Granulocytes # Neutrophils # 12.0 H Lymphocytes # 2.2 Monocytes # 1.5 H Eosinophils # 0.1 Basophils # 0.0 Nucleated Red Blood 0.0 Cells # Sodium Level 128 L Potassium Level 4.6 Chloride Level 90 L Carbon Dioxide Level 25 Anion Gap 13 Blood Urea Nitrogen 43 H Creatinine 1.38 H Est Glomerular Filtrat Rate mL/min Glucose Level 176 Hemoglobin A1c 6.5 H Calcium Level 9.0 Phosphorus Level 4.9 Magnesium Level 1.7 Test 12/19/18 08:03 Bedside Glucose 187 Home Meds Reported Medications Fenofibrate, Micronized* (Fenofibrate*) 160 Mg Tablet, 160 MG PO DAILY, TAB 12/16/18 Pioglitazone Hcl* (Actos*) 45 Mg Tablet, 45 MG PO DAILY, #30 TAB 12/16/18 Atorvastatin* (Atorvastatin*) 40 Mg Tablet, 40 MG PO QHS, #30 TAB 12/16/18 Glimepiride* (Glimepiride*) 2 Mg Tablet, 2 MG PO WITH BREAKFAST DINNE, TAB 12/16/18 Aspirin (Low Dose Aspirin) 81 Mg Tablet.dr, 81 MG PO DAILY, #30 TAB 12/16/18 Levothyroxine Sodium* (Levoxyl*) 150 Mcg Tablet, 150 MCG PO BEFORE BREAKFAST, #30 TAB 12/16/18 Insulin Aspart (Novolog Mix ()) 100 Units/Ml Soln, 0 SC PRN, VIAL PT NOT SURE 12/16/18 Furosemide* (Furosemide*) 40 Mg Tablet, 40 MG PO DAILY, TAB 12/16/18 Amlodipine Besylate* (Norvasc*) 5 Mg Tablet, 5 MG PO DAILY, TAB 12/16/18 Rivaroxaban* (Xarelto*) 20 Mg Tablet, 20 MG PO WITH DINNER, TAB 12/16/18 Celecoxib* (Celebrex*) 200 Mg Capsule, 200 MG PO BID, CAP 12/16/18 Salmeterol Xinaf/Fluticasone* (Advair*) 250-50 Diskus Inhaler, 1 INH INHALATION BID, #1 INHALER 12/16/18 Carvedilol* (Carvedilol*) 6.25 Mg Tablet, 6.25 MG PO BID, #60 TAB 12/16/18 Olmesartan Medoxomil (Benicar) 40 Mg Tablet, 40 MG PO DAILY, #30 TAB 12/16/18 Ezetimibe* (Zetia*) 10 Mg Tablet, 10 MG PO HS, TAB 12/16/18 Ferrous Sulfate* (Ferrous Sulfate*) 325 Mg Tabec, 325 MG PO DAILY, TAB 12/16/18 Magnesium Oxide* (Mag-Oxide*) 400 Mg Tablet, 400 MG PO DAILY, TAB 12/16/18 Lisinopril* (Lisinopril*) 10 Mg Tablet, 10 MG PO DAILY, #30 TAB 12/16/18 Medications Current Medications Dextrose (D50w Syringe) ONCE PRN IV DECREASED GLUCOSE; Start 12/16/18 at 18:30 Albuterol (Proventil 0.083% (Neb)) 2.5 mg Q2H RESP THERAPY PRN NEB SHORTNESS OF BREATH; Start 12/16/18 at 20:00 Ipratropium [place] (Atrovent 0.02% (Neb)) 0.5 mg Q2H RESP THERAPY PRN NEB SHORTNESS OF BREATH; Start 12/16/18 at 20:00 Acetaminophen (Tylenol Liquid) 650 mg Q6H PRN PO PAIN LEVEL 1-3 OR FEVER Last administered on 12/18/18at 19:03; Admin Dose 650 MG; Start 12/16/18 at 20:00 Docusate Sodium (Colace) 100 mg Q12H PRN PO CONSTIPATION; Start 12/16/18 at 20:00 Bisacodyl (Dulcolax) 5 mg DAILY PRN PO CONSTIPATION; Start 12/16/18 at 20:00 Atorvastatin Calcium (Lipitor) 40 mg QHS PO Last administered on 12/18/18at 21:36; Admin Dose 40 MG; Start 12/17/18 at 21:00 Carvedilol (Coreg) 6.25 mg BID PO Last administered on 12/18/18 21:37; Admin Dose 6.25 MG; Start 12/17/18 at 09:00 Levothyroxine Sodium (Synthroid) 150 mcg BEFORE BREAKFAST PO Last administered on 12/19/18 06:06; Admin Dose 150 MCG; Start 12/17/18 at 07:00 Fluticasone/ Vilanterol (Breo Ellipta 100-25 Mcg Inh) 1 inh DAILY INH Last administered on 12/17/18at 08:44; Admin Dose 1 INH; Start 12/17/18 at 09:00 Pantoprazole (Protonix Tab) 40 mg DAILY@06 PO Last administered on 12/19/18 06:06; Admin Dose 40 MG; Start 12/18/18 at 06:00 Acetaminophen/ Hydrocodone Bitart ([place] (5/325)) 1 tab Q4H PRN PO MODERATE PAIN LEVEL 4-6 Last administered on 12/19/18 06:59; Admin Dose 1 TAB; Start 12/17/18 at 10:30 Insulin Aspart (Novolog Insulin Pen) NOVOLOG *MILD* ALGORITHM WITH MEALS BEDTIME SC Last administered on 12/18/18at 23:37; Admin Dose 2 UNIT; Start 12/18/18 at 22:30 Miscellaneous Information 1 ea NOTE XX ; Start 12/18/18 at 22:30 Glucose (Glutose) 15 gm Q15M PRN PO DECREASED GLUCOSE; Start 12/18/18 at 22:30 Glucose (Glutose) 22.5 gm Q15M PRN PO DECREASED GLUCOSE; Start 12/18/18 at 22:30 Dextrose (D50w Syringe) 25 ml Q15M PRN IV DECREASED GLUCOSE; Start 12/18/18 at 22:30 Dextrose (D50w Syringe) 50 ml Q15M PRN IV DECREASED GLUCOSE; Start 12/18/18 at 22:30 Glucagon (Glucagen) 1 mg Q15M PRN IM DECREASED GLUCOSE; Start 12/18/18 at 22:30 Glucose (Glutose) 15 gm Q15M PRN BUCCAL DECREASED GLUCOSE; Start 12/18/18 at 22:30 Assessment/Plan Hospital Course (Demo Recall) Abnormal troponin probably secondary to below Aortic stenosis Cardiomyopathy Congestive heart failure: acute on chronic due to systolic and diastoilc heart failure and valvular heart disease. Severe anemia possibly GI bleed History of hypertension currently stable Obesity and possible obstructive sleep apnea Pulmonary hypertension Hyponatremia Recommendations: Patient off of any aspirin due to concern about bleeding and GI bleed in severe anemia transfusion prn Fluid management as per renal. will start po lasix lisinopril if ok with renal will need to consider bulmaro angio later on if / when ok with GI to start her on dual antiplatelet Thank you for his referral. I will continue to follow along with you LIDIA MOLINA MD [facility] LIDIA MOLINA MD Dec 19, 2018 08:49
--- NOTE | 2018-12-19 08:49 | PN ---
DATE: 12/19/2018 SUBJECTIVE: The patient is stable. No events overnight. The patient had EGD yesterday which showed gastritis. OBJECTIVE: VITAL SIGNS: Blood pressure is 101/54, respiration 18, pulse 64, temperature 97.8. HEENT: Head is normocephalic. NECK: Supple. HEART: Regular rate. LUNGS: Show diminished breath sounds at the base, mild crackles. ABDOMEN: Soft, nontender to palpation. No rebound or guarding. EXTREMITIES: Negative for clubbing, cyanosis. Positive edema. DERMATOLOGIC: No rashes. MUSCULOSKELETAL: No joint effusions. NEUROLOGIC: No change in exam. MEDICATIONS: Reviewed. LABORATORY DATA: Has been reviewed. The patient's sodium 128, BUN 43, creatinine 1.38. White count 15.9, hemoglobin 7.4, platelet count is 267. Cultures have been reviewed. ASSESSMENT AND PLAN: 1. Nonoliguric acute kidney injury with unknown baseline creatinine. Etiology is secondary to hemod ynamics, possible cardiorenal syndrome, NSAID effect. The patient's renal function has been fluctuat ing but overall stable in the last 24 to 48 hours. At this point, will continue current treatment pl an. Continue diuretic therapy. Monitor renal function, electrolytes, I's and O's closely. 2. Hyponatremia. Etiology is multifactorial secondary to acute kidney injury in conjunction with he art failure, polydipsia. The patient is on free water restriction. Continue current treatment plan. Continue diuretic therapy. Monitor sodium levels closely. 3. Hyperkalemia, improved. Continue to monitor. 4. Acute heart failure. The patient is decompensated. Continue diuretic regimen. Follow up with c ardiology for recommendations. 5. Anemia. Monitor hemoglobin and hematocrit levels. The patient is status post EGD with evidence of gastritis. Continue proton pump inhibitor. 6. Mineral bone disorder. Monitor calcium and phosphorus levels. 7. Elevated troponin. Etiology is likely due to non-ST elevation myocardial infarction type 1. Con cat to monitor serial troponins. Follow up with cardiology. A 2D echo was reviewed. 8. Diabetes. Continue current insulin regimen. 9. Hypertension. Continue current blood pressure regimen. 10. Hypothyroidism. Continue Synthroid. 11. Gastrointestinal and deep venous thrombosis prophylaxis. Dictated By: JOVAN TELLO/MARY Conf#: [id number] DID#: [id number] CC: BETZY HERNANDEZ MD;*[facility]*
[2018-12-19] MEDS ORDERED: FUROSEMIDE 40 MG TAB PO SCH (09:00)
[2018-12-19] MEDS: FLUTICASONE/VILANTEROL 100-25 INH SCH (10:58)
[2018-12-19] MEDS ORDERED: PANT40TA3 PO (15:36)
--- NOTE | 2018-12-19 15:38 | PDOCDIS ---
Discharge Instructions CONDITION [id number] Patient Condition: [id number] Good HOME CARE INSTRUCTIONS: [id number] Special Diet: [id number] Diabetic ACTIVITY: [id number] Activity Restrictions: [id number] No Restrictions FOLLOW UP/APPOINTMENTS Follow-up Plan Follow-up with your PCP in 1-2 weeks, follow-up with Dr. Buck [facility] Dec 19, 2018 15:38
--- NOTE | 2018-12-19 15:45 | DS ---
Date/Time of Note Date/Time of Note DATE: 12/19/18 TIME: 15:38 Discharge Summary Admission/Discharge Info Admit Date/Time Dec 16, 2018 at 18:55 Discharge Date/Time December 19, 2018 Discharge Diagnosis 1. Symptomatic anemia likely secondary to a GI source Stool occult is positive, denies vaginal bleeding GI consultation appreciated, EGD shows gastritis CT abdomen shows no obvious source for bleeding Status post 2 units of blood Patient is on Xarelto for unknown reasons, will resume DC with PPI, follow-up with GI as outpatient 2. Acute on chronic systolic and diastolic CHF exacerbation-resolved Echo does show an EF 40% with moderate severe aortic stenosis Status post Lasix IV Cardiology consultation appreciated Continue home Lasix 3. Severe hyponatremia likely secondary to CHF and diuretics-improved Status post albumin 4. Acute kidney injury/CKD-stable Baseline unknown Outpatient monitoring Nephrology consultation appreciated 5. History of hypertension Continue home meds as tolerated 6. NSTEMI likely secondary to demand Cardiology consultation appreciated 7. Diabetes Continue home regimen A1c 6.6 8. Hypothyroidism Continue Synthroid 9. Morbid obesity Lifestyle changes Patient Condition: Good Hospital Course Patient is an 83-year-old female with a history of CHF, diabetes, morbid obesity likely CKD, hypothyroidism who presents with symptomatic anemia secondary to a GI source. Patient denies any reji melena or bright red blood per rectum with stool occult was positive and patient denied vaginal bleeding. Patient was seen by GI and EGD showed chronic gastritis, CT abdomen showed no obvious source of bleeding. Patient did receive 2 units of blood with stabilization of anemia. Patient did have an episode of respiratory distress secondary to CHF exacerbation which resolved with Lasix IV. Patient was clear for DC per GI, of note pathology from EGD showed chronic gastritis with intestinal metaplasia, no H pylori or malignancy was noted. On the day of discharge patient's vitals, labs and physical exam are stable. Home Meds Active Scripts Pantoprazole* (Protonix*) 40 Mg Tablet., 40 MG PO DAILY for 30 Days, #30 TAB Prov:FAITH SIMON 12/19/18 Reported Medications Fenofibrate, Micronized* (Fenofibrate*) 160 Mg Tablet, 160 MG PO DAILY, TAB 12/16/18 Pioglitazone Hcl* (Actos*) 45 Mg Tablet, 45 MG PO DAILY, #30 TAB 12/16/18 Atorvastatin* (Atorvastatin*) 40 Mg Tablet, 40 MG PO QHS, #30 TAB 12/16/18 Glimepiride* (Glimepiride*) 2 Mg Tablet, 2 MG PO WITH BREAKFAST DINNE, TAB 12/16/18 Aspirin (Low Dose Aspirin) 81 Mg Tablet.dr, 81 MG PO DAILY, #30 TAB 12/16/18 Levothyroxine Sodium* (Levoxyl*) 150 Mcg Tablet, 150 MCG PO BEFORE BREAKFAST, #30 TAB 12/16/18 Insulin Aspart (Novolog Mix ()) 100 Units/Ml Soln, 0 SC PRN, VIAL PT NOT SURE 12/16/18 Furosemide* (Furosemide*) 40 Mg Tablet, 40 MG PO DAILY, TAB 12/16/18 Amlodipine Besylate* (Norvasc*) 5 Mg Tablet, 5 MG PO DAILY, TAB 12/16/18 Rivaroxaban* (Xarelto*) 20 Mg Tablet, 20 MG PO WITH DINNER, TAB 12/16/18 Celecoxib* (Celebrex*) 200 Mg Capsule, 200 MG PO BID, CAP 12/16/18 Salmeterol Xinaf/Fluticasone* (Advair*) 250-50 Diskus Inhaler, 1 INH INHALATION BID, #1 INHALER 12/16/18 Carvedilol* (Carvedilol*) 6.25 Mg Tablet, 6.25 MG PO BID, #60 TAB 12/16/18 Olmesartan Medoxomil (Benicar) 40 Mg Tablet, 40 MG PO DAILY, #30 TAB 12/16/18 Ezetimibe* (Zetia*) 10 Mg Tablet, 10 MG PO HS, TAB 12/16/18 Ferrous Sulfate* (Ferrous Sulfate*) 325 Mg Tabec, 325 MG PO DAILY, TAB 12/16/18 Magnesium Oxide* (Mag-Oxide*) 400 Mg Tablet, 400 MG PO DAILY, TAB 12/16/18 Lisinopril* (Lisinopril*) 10 Mg Tablet, 10 MG PO DAILY, #30 TAB 12/16/18 Follow-up Plan Follow-up with your PCP in 1-2 weeks, follow-up with Dr. Buck of GI Primary Care Provider Not On Staff Doctor Time spent on discharge: > 30 minutes FAITH SIMON Dec 19, 2018 15:45
--- NOTE | 2018-12-28 09:33 | GILP ---
DATE OF PROCEDURE: 12/18/2018 NAME OF PROCEDURE: Esophagogastroduodenoscopy. PREOPERATIVE DIAGNOSIS: The patient presenting with history of abdominal discomfort and nausea, vomi ting, rule out peptic ulcer disease. POSTOPERATIVE DIAGNOSES: 1. Moderate degree of a distal esophageal erosions and distal esophagitis, minimal antral gastritis. 2. Duodenum appeared normal. DESCRIPTION OF PROCEDURE: After the informed written consent was obtained, the patient was asked to lie on the left lateral side. Intravenous anesthesia was given by anesthesiologist, Dr. Smith. When the patient became somnolent, the Olympus video upper endoscope was inserted into the oropharynx , then into the esophagus. Multiple erosions noted in the distal esophagus. Biopsies were obtained to rule out Hester esophagus. Stomach showed minimal erythema in the antrum. Biopsy was done from the antrum, lesser curvature and the fundus to rule out H. pylori infection. Mucosa of the duodenum appeared normal. Scope at this time was withdrawn. No additional abnormalities detected and the pro cedure was terminated. PLAN: Recommend omeprazole 40 mg a day. Dictated By: CECILIA LIMON/NTS Conf#: [id number] DID#: [id number] CC: BETZY HERNANDEZ MD; FAITH SIMON MD;*End*
== END 2018-12-19 17:50 | disposition home or self-care (01) | DRG 377 ==
LOC: E/R 17:07 → ICU 18:55 → TEL 12-17 17:07
PROVIDERS: ADMIT Family Medicine; ATTEND Internal Medicine
PROC: 30233N1 Transfusion of Nonautologous Red Blood Cells into Peripheral Vein, Percutaneous Approach (ICD-10-PCS; 2018-12-16)
PROC: 0DB78ZX Excision of Stomach, Pylorus, Via Natural or Artificial Opening Endoscopic, Diagnostic (ICD-10-PCS; 2018-12-18)
PROC: 0DB58ZX Excision of Esophagus, Via Natural or Artificial Opening Endoscopic, Diagnostic (ICD-10-PCS; principal; 2018-12-18 17:30)
DX: K92.2 Gastrointestinal hemorrhage, unspecified (principal); I21.A1 Myocardial infarction type 2; I50.43 Acute on chronic combined systolic (congestive) and diastolic (congestive) heart failure; I13.0 Hypertensive heart and chronic kidney disease with heart failure and stage 1 through stage 4 chronic kidney disease, or unspecified chronic kidney disease; N17.9 Acute kidney failure, unspecified; E87.1 Hypo-osmolality and hyponatremia; I42.9 Cardiomyopathy, unspecified; D64.9 Anemia, unspecified; Z68.31 Body mass index [BMI] 31.0-31.9, adult; N18.9 Chronic kidney disease, unspecified; E66.01 Morbid (severe) obesity due to excess calories; E11.9 Type 2 diabetes mellitus without complications; E03.9 Hypothyroidism, unspecified; E66.9 Obesity, unspecified; Z68.39 Body mass index [BMI] 39.0-39.9, adult; Z79.02 Long term (current) use of antithrombotics/antiplatelets; Z79.82 Long term (current) use of aspirin; E87.5 Hyperkalemia; I44.0 Atrioventricular block, first degree; I27.20 Pulmonary hypertension, unspecified; G47.33 Obstructive sleep apnea (adult) (pediatric); I35.0 Nonrheumatic aortic (valve) stenosis
CPT/HCPCS: 36415; 36430; 71045; 71250; 74176; 80048; 80053; 80061; 80076; 81001; 81003; 82043; 82270; 82533; 82550; 82553; 82962; 83036; 83605; 83735; 83880; 83935; 84100; 84155; 84300; 84484; 85025; 86850; 86900; 86901; 86920; 87040; 87081; 88305; 88312; 93005; 93306; 93970; 94664; C9113; J1815; J1940; J7030; J7040; P9016; P9047